=== PATIENT | female | born 1980 | race Caucasian/White ===

== ENCOUNTER 2016-08-06 11:09 | Emergency (ER) | payer MEDICAID ==
--- NOTE | 2016-08-06 11:21 | ER Document Report ---
ED Medical Screen (RME) - General Chief Complaint: Dizziness Stated Complaint: URINARY ISSUES Time Seen by Provider: 08/06/16 11:19 Mode of Arrival: Ambulatory Information source: Patient Notes: This is a 36-year-old female with no significant medical problems who presents to the emergency room with several complaints. She states she has not been feeling well for the past 2-3 weeks. She states she has been experiencing vertigo for 2-1/2 weeks. She started experiencing ringing in her ears approximately 1 week ago and it has been constant. She states last night she started having lower suprapubic pain, burning on urination and back pain. Denies fever, chills, nausea or vomiting. Medicines are control pills. She is not followed by primary care doctor because she does not have insurance. TRAVEL OUTSIDE OF THE [place] IN LAST 30 DAYS: No - Related Data Allergies/Adverse Reactions: moxifloxacin HCl [From Avelox] Allergy (Verified 08/06/16 11:13) blisters in nose Past Medical History Renal/ Medical History: Denies: Hx Peritoneal Dialysis Past Surgical History: Reports: Hx Cholecystectomy - Immunizations Hx Diphtheria, Pertussis, Tetanus Vaccination: No Physical Exam - Vital signs Vitals: Temp Pulse Resp BP Pulse Ox 98.5 F 112 H 22 H 145/99 H 98 08/06/16 11:13 08/06/16 11:13 08/06/16 11:13 08/06/16 11:13 08/06/16 11:13 Course - Vital Signs Vital signs: Temp Pulse Resp BP Pulse Ox 98.5 F 112 H 22 H 145/99 H 98 08/06/16 11:13 08/06/16 11:13 08/06/16 11:13 08/06/16 11:13 08/06/16 11:13
[2016-08-06 11:51] LABS: ABSOLUTE BASOPHILS # (AUTO) 0.1 10^3/uL (0.0-0.2); ABSOLUTE EOSINOPHILS # (AUTO) 0.2 10^3/uL (0.0-0.6); ABSOLUTE LYMPHOCYTES (AUTO) 3.3 10^3/uL (0.5-4.7); ABSOLUTE MONOCYTES (AUTO) 0.6 10^3/uL (0.1-1.4); ABSOLUTE NEUT (AUTO) 7.8 10^3/uL (1.7-8.2); BASOPHILS % (AUTO) 0.8 % (0-2); EOSINOPHILS % (AUTO) 1.7 % (0-6); HEMATOCRIT 41.5 % (36.0-47.0); HEMOGLOBIN 13.7 g/dL (12.0-15.5); HGB HCT DIFFERENCE -0.4; LYMPHOCYTES % (AUTO) 27.6 % (13-45); MEAN CORPUSCULAR HEMOGLOBIN 31.1 pg (27.0-33.4); MEAN CORPUSCULAR VOLUME 94 fl (80-97); RED BLOOD COUNT 4.41 10^6/uL (3.72-5.28); RED CELL DISTRIBUTION WIDTH 13.5 % (11.5-14.0); SEGMENTED NEUTROPHILS % (AUTO) 64.9 % (42-78)
[2016-08-06 11:54] LABS: APPEARANCE,URINE CLEAR; BILIRUBIN,URINE NEGATIVE (NEGATIVE); GLUCOSE, URINE NEGATIVE (NEGATIVE); KETONES,URINE NEGATIVE (NEGATIVE); LEUKOCYTE ESTERASE,URINE NEGATIVE (NEGATIVE); NITRITE,URINE NEGATIVE (NEGATIVE); PROTEIN,URINE NEGATIVE (NEGATIVE); URINE SPECIFIC GRAVITY 1.013; UROBILINOGEN,URINE NEGATIVE mg/dL (<2.0)
[2016-08-06 12:11] LABS: ALANINE AMINOTRANSFERASE 32 U/L (9-52); ALBUMIN 4.4 g/dL (3.5-5.0); ALKALINE PHOSPHATASE 64 U/L (38-126); ANION GAP 14 (5-19); ASPARTATE AMINO TRANSFERASE 24 U/L (14-36); BILIRUBIN,DIRECT 0.4 mg/dL (0.0-0.4); BILIRUBIN,TOTAL 0.4 mg/dL (0.2-1.3); BLOOD UREA NITROGEN 12 mg/dL (7-20); CALCIUM 9.7 mg/dL (8.4-10.2); CARBON DIOXIDE 22 mmol/L (22-30); CHLORIDE 105 mmol/L (98-107); CREATININE RESULT 0.86 mg/dL (0.52-1.25); GLUCOSE 138 mg/dL (75-110); POTASSIUM 4.5 mmol/L (3.6-5.0); SODIUM 140.7 mmol/L (137-145); TOTAL PROTEIN 7.8 g/dL (6.3-8.2)
[2016-08-06] MEDS ORDERED: HYDROCHLOROTHIAZIDE 12.5 MG CAPSULE PO ONE (12:12)
[2016-08-06] MEDS ORDERED: MECLIZINE HCL 25 MG TABLET PO ONE (12:12)
[2016-08-06] MEDS ORDERED: CEPHALEXIN 500 MG CAPSULE PO ONE (12:57)
--- NOTE | 2016-08-06 13:05 | ER Document Report ---
ED General - General Chief Complaint: Dizziness Stated Complaint: URINARY ISSUES Time Seen by Provider: 08/06/16 11:19 Mode of Arrival: Ambulatory Information source: Patient Notes: Pt is a 36-year-old female who presents to the ER for multiple complaints today including dizziness, like the room is spinning. Patient states that she has had vertigo before and it is exactly like that. She complains of this for the past 2 weeks. She also states that she has ringing in the right ear and a feeling of fullness in that ear. She is taking meclizine [id number] as needed, once at night for the past 2 nights but it has not helped yet. She also complains of some lower abdominal and left flank pain since this morning. Patient states that it feels like her previous kidney infection. She admits to some dysuria but denies hematuria, abnormal vaginal discharge, fevers , chills, history of kidney stones. She states the pain is an aching pain. TRAVEL OUTSIDE OF THE [place] IN LAST 30 DAYS: No - Related Data Allergies/Adverse Reactions: moxifloxacin HCl [From Avelox] Allergy (Verified 08/06/16 11:13) blisters in nose Past Medical History - General Information source: Patient - Social History Smoking Status: Never Smoker Chew tobacco use (# tins/day): No Frequency of alcohol use: None Drug Abuse: None Family History: Reviewed & Not Pertinent Patient has suicidal ideation: No Patient has homicidal ideation: No Renal/ Medical History: Denies: Hx Peritoneal Dialysis Past Surgical History: Reports: Hx Cholecystectomy - Immunizations Hx Diphtheria, Pertussis, Tetanus Vaccination: No Review of Systems - Review of Systems Constitutional: No symptoms reported EENT: See HPI Cardiovascular: No symptoms reported Respiratory: No symptoms reported Gastrointestinal: No symptoms reported Genitourinary: See HPI Female Genitourinary: No symptoms reported Musculoskeletal: No symptoms reported Skin: No symptoms reported Hematologic/Lymphatic: No symptoms reported Neurological/Psychological: See HPI Physical Exam - Vital signs Vitals: Temp Pulse Resp BP Pulse Ox 98.5 F 112 H 22 H 145/99 H 98 08/06/16 11:13 08/06/16 11:13 08/06/16 11:13 08/06/16 11:13 08/06/16 11:13 - Notes Notes: PHYSICAL EXAMINATION: GENERAL: uncomfortable appearing, but in no acute distress. HEAD: Atraumatic, normocephalic. EYES: mild nystagmus to the right, Pupils equal round and reactive to light, extraocular movements intact, sclera anicteric, conjunctiva are normal. ENT: ear canals without erythema or foreign body, TMs pearly patino with good bony landmarks, nares patent, oropharynx clear without exudates. Moist mucous membranes. NECK: Normal range of motion, supple without lymphadenopathy LUNGS: CTAB and equal. No wheezes rales or rhonchi. HEART: Regular rate and rhythm without murmurs ABDOMEN: Soft, mild suprapubic tenderness. No guarding, no rebound BACK: no vertebral tenderness, normal ROM GI/: left CVA tenderness EXTREMITIES: Normal range of motion, no pitting edema. No cyanosis. NEUROLOGICAL: Cranial nerves grossly intact. Normal sensory/motor exams. PSYCH: Normal mood, normal affect. SKIN: Warm, Dry, normal turgor, no rashes or lesions noted Course - Re-evaluation Re-evalutation: 08/06/16 13:01 WBC is 12, other labwork unremarkable today, I will treat pt symptomatically for uti. she declines pelvic exam today stating "I know it's not any of that." will also treat her for meniere's disease with ringing in ear along with vertigo symptoms and hearing loss, I advised her to follow up with pcp for further evaluation. - Vital Signs Vital signs: Temp Pulse Resp BP Pulse Ox 98.5 F 112 H 22 H 145/99 H 98 08/06/16 11:13 08/06/16 11:13 08/06/16 11:13 08/06/16 11:13 08/06/16 11:13 - Laboratory Result Diagrams: 08/06/16 11:40 08/06/16 11:40 Laboratory results interpreted by me: 08/06/16 08/06/16 08/06/16 11:40 11:40 11:40 WBC 12.0 H Glucose 138 H TSH 4.71 H Discharge - Discharge Clinical Impression: Meniere disease Qualifiers: Laterality: right Qualified Code(s): H81.01 - Meniere's disease, right ear UTI (urinary tract infection) Qualifiers: Urinary tract infection type: site unspecified Hematuria presence: without hematuria Qualified Code(s): N39.0 - Urinary tract infection, site not specified Condition: Stable Disposition: HOME, SELF-CARE Additional Instructions: Return immediately for any new or worsening symptoms. Follow up with primary care provider, call tomorrow to make followup appointment. Prescriptions: Cephalexin [Cephalexin 500 MG Capsule] 1 cap PO QID #28 capsule Hydrochlorothiazide 12.5 mg PO BID #14 tablet Meclizine HCl 25 mg PO TID #21 tablet
[2016-08-06 13:17] VITALS: BP 132/88
== END 2016-08-06 13:17 | disposition home or self-care (01) ==
LOC: ER 11:09
DX: H81.01 Meniere's disease, right ear (principal); N39.0 Urinary tract infection, site not specified; Z88.1 Allergy status to other antibiotic agents
CPT/HCPCS: 36415; 80053; 81001; 84443; 85025; 87086; 99283

== ENCOUNTER 2016-10-29 18:04 | Emergency (ER) | payer SELFPAY ==
[2016-10-29 20:12] VITALS: BP 131/88
[2016-10-29] MEDS ORDERED: GUAIFENESIN 600 MG TABLET.SA PO ONE (20:12)
--- NOTE | 2016-10-29 20:17 | ER Document Report ---
ED ENT - General Chief Complaint: Congestion Stated Complaint: CONGESTED Time Seen by Provider: 10/29/16 19:23 Mode of Arrival: Ambulatory Information source: Patient Notes: 36-year-old female presents to ED for congestion runny nose and nose pain. She states she has had postnasal drip for a while. TRAVEL OUTSIDE OF THE [place] IN LAST 30 DAYS: No - HPI Patient complains to provider of: Nose problem Onset: Other - Nasal drip has been for week for congestion and nose pain is been today Onset/Duration: Gradual Quality of pain: Achy, Sharp Severity: Moderate Pain Level: 4 Context: Recent Illness Location of pain: Nose Associated symptoms: Runny nose, Sinus pain, Sinus drainage Similar symptoms previously: Yes Recently seen / treated by doctor: No - Related Data Allergies/Adverse Reactions: moxifloxacin HCl [From Avelox] Allergy (Verified 10/29/16 18:14) blisters in nose Past Medical History - General Information source: Patient - Social History Smoking Status: Former Smoker Cigarette use (# per day): No - e-cig Chew tobacco use (# tins/day): No Smoking Education Provided: No Frequency of alcohol use: None Drug Abuse: None Occupation: None Lives with: Family Family History: Arthritis, DM, Hypertension, Malignancy. denies: CAD, COPD, CVA , Hyperlipidemia, Thyroid Disfunction Patient has suicidal ideation: No Patient has homicidal ideation: No - Past Medical History Cardiac Medical History: Reports: Hx Hypertension Pulmonary Medical History: Reports: Hx Bronchitis EENT Medical History: Reports: None Neurological Medical History: Reports: None Endocrine Medical History: Reports: None Renal/ Medical History: Reports: None Malignancy Medical History: Reports: None GI Medical History: Reports: None Musculoskeltal Medical History: Reports None Skin Medical History: Reports Hx Eczema Psychiatric Medical History: Reports: Hx Anxiety Traumatic Medical History: Reports: None Infectious Medical History: Reports: None Past Surgical History: Reports: Hx Cholecystectomy - Immunizations Hx Diphtheria, Pertussis, Tetanus Vaccination: No Review of Systems - Review of Systems Constitutional: Recent illness EENT: Nose pain, Nose congestion, Nose discharge Cardiovascular: No symptoms reported Respiratory: No symptoms reported Gastrointestinal: No symptoms reported Genitourinary: No symptoms reported Female Genitourinary: No symptoms reported Musculoskeletal: No symptoms reported Skin: No symptoms reported Hematologic/Lymphatic: No symptoms reported Neurological/Psychological: No symptoms reported Physical Exam - Vital signs Vitals: Temp Pulse Resp BP Pulse Ox 98.7 F 110 H 16 147/100 H 98 10/29/16 18:14 10/29/16 18:14 10/29/16 18:14 10/29/16 18:14 10/29/16 18:14 Interpretation: Normal - General General appearance: Appears well, Alert - HEENT Head: Normocephalic, Atraumatic Eyes: Normal Pupils: PERRL Ears: Normal External canal: Normal Tympanic membrane: Normal Sinus: Normal Nasal: Swelling, Clear rhinorrhea Mouth/Lips: Normal Mucous membranes: Normal Pharynx: Post nasal drainage Neck: Normal - Respiratory Respiratory status: No respiratory distress Chest status: Nontender Breath sounds: Normal Chest palpation: Normal - Cardiovascular Rhythm: Regular Heart sounds: Normal auscultation Murmur: No - Abdominal Inspection: Normal Distension: No distension Bowel sounds: Normal Tenderness: Nontender Organomegaly: No organomegaly - Back Back: Normal, Nontender - Extremities General upper extremity: Normal inspection, Nontender, Normal color, Normal ROM , Normal temperature General lower extremity: Normal inspection, Nontender, Normal color, Normal ROM , Normal temperature, Normal weight bearing. No: Maurice's sign - Neurological Neuro grossly intact: Yes Cognition: Normal Orientation: AAOx4 [place] Coma Scale Eye Opening: Spontaneous [place] Coma Scale Verbal: Oriented Solomon Coma Scale Motor: Obeys Commands [place] Coma Scale Total: 15 Speech: Normal Motor strength normal: LUE, RUE, LLE, RLE Sensory: Normal - Psychological Associated symptoms: Normal affect, Normal mood - Skin Skin Temperature: Warm Skin Moisture: Dry Skin Color: Normal Course - Re-evaluation Re-evalutation: 10/29/16 22:39 Respiratory infection. Patient treated with Tylenol and Mucinex in the emergency room and discharged home to follow-up with her primary doctor. - Vital Signs Vital signs: Temp Pulse Resp BP Pulse Ox 98.2 F 93 16 131/88 H 98 10/29/16 20:30 10/29/16 20:05 10/29/16 20:05 10/29/16 20:05 10/29/16 20:05 Discharge - Discharge Clinical Impression: URI (upper respiratory infection) Qualifiers: URI type: unspecified URI Qualified Code(s): J06.9 - Acute upper respiratory infection, unspecified Condition: Stable Disposition: HOME, SELF-CARE Instructions: [facility] Additional Instructions: UPPER RESPIRATORY ILLNESS: You have a viral infection of the respiratory passages -- a "cold." This common infection causes nasal congestion, drainage, and often sore throat and cough. It is highly contagious. The disease usually lasts about 10 to 14 days. There is no "cure" for the viral infection -- it must run its course. If there is a complication, such as bacterial infection in the nose, sinuses, middle ear, or bronchial tubes, antibiotics may be required. The antibiotics won't affect the virus. Drink plenty of fluids. A humidifier may help. An expectorant medication or decongestant may make you more comfortable. Use acetaminophen or ibuprofen for fever or aches. See the doctor if fever persists over two days, if there is any significant worsening of your symptoms, or if you simply fail to improve as expected. COUGH-SUPPRESSANT & EXPECTORANT MEDICATION: You are to use a cough medication as needed for relief of symptoms. This medicine is a combination of an expectorant (to make the mucous thinner and more easily "coughed up") and a cough suppressant (to reduce the frequency of coughing). The cough-suppressant medicine is related to narcotics. You may experience mild nausea and sleepiness. Some patients who are very sensitive to narcotics may have stomach pain from this medicine. Taking the medicine with food reduces these side effects. Do not drive or work with machinery until you know how this medicine affects you. The expectorant should have no side effects. Iodine-containing expectorants (such as organidin) should not be taken by persons with active thyroid disease unless approved by your doctor. Call the doctor if you develop shortness of breath, hives, rash, itching, lightheadedness, or severe nausea and vomiting. USE OF ACETAMINOPHEN (Tylenol): Acetaminophen may be taken for pain relief or fever control. It's much safer than aspirin, offering a wider range of "safe" dosages. It is safe during . Some brand names are Tylenol, Panadol, Datril, Anacin 3, Tempra, and Liquiprin. Acetaminophen can be repeated every four hours. The following are maximum recommended dosages: >89 pounds or adults 650 mg to 900 mg Acetaminophen can be repeated every four hours. Maximum dose not to exceed 4000 mg a day. mature aging FOLLOW-UP CARE: If you have been referred to a physician for follow-up care, call the physician s office for an appointment as you were instructed or within the next two days. If you experience worsening or a significant change in your symptoms, notify the physician immediately or return to the Emergency Department at any time for re-evaluation. Forms: Elevated Blood Pressure
== END 2016-10-29 20:30 | disposition home or self-care (01) ==
LOC: ER 18:04
DX: J06.9 Acute upper respiratory infection, unspecified (principal); R09.81 Nasal congestion; R09.89 Other specified symptoms and signs involving the circulatory and respiratory systems; J34.89 Other specified disorders of nose and nasal sinuses; Z87.891 Personal history of nicotine dependence
CPT/HCPCS: 99283

== ENCOUNTER 2017-03-06 12:50 | Emergency (ER) | payer SELFPAY ==
[2017-03-06] MEDS ORDERED: ONDANSETRON HCL INJ/PF 4 MG/2 ML SDV IV ONE (14:46)
[2017-03-06] MEDS ORDERED: MORPHINE SULFATE 10 MG/ML INJ IV ONE (14:46)
--- NOTE | 2017-03-06 14:47 | ER Document Report ---
ED General - General Chief Complaint: Abdominal Pain Stated Complaint: RIGHT SIDE PAIN Time Seen by Provider: 03/06/17 14:40 Mode of Arrival: Ambulatory Information source: Patient Notes: 37-year-old female presents with umbilical pain radiating to the right lower quadrant. Patient denies any fevers or chills denies any nausea vomiting diarrhea patient denies any previous similar episodes TRAVEL OUTSIDE OF THE [place] IN LAST 30 DAYS: No - HPI Onset: This morning Onset/Duration: Sudden Quality of pain: Achy Severity: Mild Pain Level: 1 Associated symptoms: Other Exacerbated by: Denies Relieved by: Denies Similar symptoms previously: No Recently seen / treated by doctor: No - Related Data Allergies/Adverse Reactions: moxifloxacin HCl [From Avelox] Allergy (Verified 03/06/17 14:34) blisters in nose Past Medical History - Social History Smoking Status: Former Smoker Cigarette use (# per day): No Chew tobacco use (# tins/day): No Smoking Education Provided: No Frequency of alcohol use: None Drug Abuse: None Family History: Arthritis, DM, Hypertension, Malignancy. denies: CAD, COPD, CVA , Hyperlipidemia, Thyroid Disfunction Patient has suicidal ideation: No Patient has homicidal ideation: No - Past Medical History Cardiac Medical History: Reports: Hx Hypertension Pulmonary Medical History: Reports: Hx Bronchitis Renal/ Medical History: Denies: Hx Peritoneal Dialysis Skin Medical History: Reports Hx Eczema Psychiatric Medical History: Reports: Hx Anxiety Past Surgical History: Reports: Hx Cholecystectomy - Immunizations Hx Diphtheria, Pertussis, Tetanus Vaccination: No Review of Systems - Review of Systems Notes: REVIEW OF SYSTEMS: CONSTITUTIONAL : Denies fever, chills, or sweats. Denies recent illness. EENT: Denies eye, ear, throat, or mouth pain or symptoms. Denies nasal or sinus congestion or discharge. Denies throat, tongue, or mouth swelling or difficulty swallowing. CARDIOVASCULAR: Denies chest pain. Denies palpitations or racing or irregular heart beat. Denies ankle edema. RESPIRATORY: Denies cough, cold, or chest congestion. Denies shortness of breath, difficulty breathing, or wheezing. GASTROINTESTINAL: Admits to abdominal pain GENITOURINARY: Denies difficulty urinating, painful urination, burning, frequency, blood in urine, or discharge. FEMALE GENITOURINARY: Denies vaginal bleeding, heavy or abnormal periods, irregular periods. Denies vaginal discharge or odor. MUSCULOSKELETAL: Denies back or neck pain or stiffness. Denies joint pain or swelling. SKIN: Denies rash, lesions or sores. HEMATOLOGIC : Denies easy bruising or bleeding. LYMPHATIC: Denies swollen, enlarged glands. NEUROLOGICAL: Denies confusion or altered mental status. Denies passing out or loss of consciousness. Denies dizziness or lightheadedness. Denies headache. Denies weakness or paralysis or loss of use of either side. Denies problems with gait or speech. Denies sensory loss, numbness, or tingling. Denies seizures. PSYCHIATRIC: Denies anxiety or stress. Denies depression, suicidal ideation, or homicidal ideation. ALL OTHER SYSTEMS REVIEWED AND NEGATIVE. PHYSICAL EXAMINATION: GENERAL: Well-appearing, well-nourished and in no acute distress. HEAD: Atraumatic, normocephalic. EYES: Pupils equal round and reactive to light, extraocular movements intact, conjunctiva are normal. ENT: Nares patent, oropharynx clear without exudates. Moist mucous membranes. NECK: Normal range of motion, supple without lymphadenopathy LUNGS: Breath sounds clear to auscultation bilaterally and equal. No wheezes rales or rhonchi. HEART: Regular rate and rhythm without murmurs ABDOMEN: Soft, tender to the right of the umbilicus there is no right lower quadrant tenderness no rebound no guarding no masses Female : deferred Musculoskeletal: Normal range of motion, no pitting or edema. No cyanosis. NEUROLOGICAL: Cranial nerves grossly intact. Normal speech, normal gait. Normal sensory, motor exams PSYCH: Normal mood, normal affect. SKIN: Warm, Dry, normal turgor, no rashes or lesions noted. Dictation was performed using [employer] voice recognition software Physical Exam - Vital signs Vitals: Temp Pulse Resp BP Pulse Ox 98.2 F 111 H 18 112/85 98 03/06/17 17:42 03/06/17 17:42 03/06/17 17:42 03/06/17 17:42 03/06/17 17:42 Course - Re-evaluation Re-evalutation: 03/06/17 21:04 Patient's presentation is a possibility of an acute appendicitis, the lab work did note mild white count elevation but she is afebrile. I did perform a CT with oral and IV contrast no acute abnormalities were noted. I explained to the patient that there is a higher probability of appendicitis given her presentation and that this may be too early. Therefore patient was explained that her symptoms may worsen and if they do she must return immediately for reevaluation. Patient states she understands and will do so. I had a long discussion with both her and her father regarding my concerns. They are happy with this plan and will be discharged home with extremely close follow-up I provided my phone number for them to contact if there are any other concerns After performing a Medical Screening Examination, I estimate there is LOW risk for ACUTE APPENDICITIS, BOWEL OBSTRUCTION, ACUTE CHOLECYSTITIS, PERFORATED DIVERTICULITIS, INCARCERATED HERNIA, PANCREATITIS, PELVIC INFLAMMATORY DISEASE, PERFORATED ULCER, ECTOPIC , or TUBO-OVARIAN ABSCESS, thus I consider the discharge disposition reasonable. Also, there is no evidence or peritonitis , sepsis, or toxicity. I have reevaluated this patient multiple times and no significant life threatening changes are noted. The patient and I have discussed the diagnosis and risks, and we agree with discharging home with close follow-up with the understanding that symptoms and presentations can change. We also discussed returning to the Emergency Department immediately if new or worsening symptoms occur. We have discussed the symptoms which are most concerning (e.g., bloody stool, fever, changing or worsening pain, vomiting) that necessitate immediate return. - Vital Signs Vital signs: Temp Pulse Resp BP Pulse Ox 98.2 F 111 H 18 112/85 98 03/06/17 17:42 03/06/17 17:42 03/06/17 17:42 03/06/17 17:42 03/06/17 17:42 - Laboratory Result Diagrams: 03/06/17 15:27 03/06/17 15:27 Laboratory results interpreted by me: 03/06/17 03/06/17 15:27 15:27 WBC 13.5 H Plt Count 475 H Absolute Neutrophils 9.9 H Glucose 193 H - Diagnostic Test Radiology reviewed: Image reviewed, Reports reviewed - no acute abnormaltiy Discharge - Discharge Clinical Impression: Abdominal pain Qualifiers: Abdominal location: periumbilical Qualified Code(s): R10.33 - Periumbilical pain Condition: Stable Disposition: HOME, SELF-CARE Instructions: Abdominal Pain ([facility]), Observation for Appendicitis ([facility]) Additional Instructions: Return immediately if there are any other concerns
[2017-03-06 15:48] LABS: ABSOLUTE BASOPHILS # (AUTO) 0.1 10^3/uL (0.0-0.2); ABSOLUTE EOSINOPHILS # (AUTO) 0.1 10^3/uL (0.0-0.6); ABSOLUTE LYMPHOCYTES (AUTO) 2.9 10^3/uL (0.5-4.7); ABSOLUTE MONOCYTES (AUTO) 0.4 10^3/uL (0.1-1.4); ABSOLUTE NEUT (AUTO) 9.9 10^3/uL (1.7-8.2); BASOPHILS % (AUTO) 0.6 % (0-2); EOSINOPHILS % (AUTO) 0.8 % (0-6); HEMOGLOBIN 14.5 g/dL (12.0-15.5); LYMPHOCYTES % (AUTO) 21.9 % (13-45); MEAN CORPUSCULAR HEMOGLOBIN 30.9 pg (27.0-33.4); MEAN CORPUSCULAR VOLUME 94 fl (80-97); PLATELET COUNT 475 10^3/uL (150-450); RED CELL DISTRIBUTION WIDTH 13.3 % (11.5-14.0); SEGMENTED NEUTROPHILS % (AUTO) 73.7 % (42-78); TOTAL CELLS COUNTED % (AUTO) 100 %; WHITE BLOOD COUNT 13.5 10^3/uL (4.0-10.5)
[2017-03-06 16:07] LABS: ALANINE AMINOTRANSFERASE 43 U/L (9-52); ALBUMIN 4.6 g/dL (3.5-5.0); ALKALINE PHOSPHATASE 68 U/L (38-126); ANION GAP 13 (5-19); ASPARTATE AMINO TRANSFERASE 25 U/L (14-36); BILIRUBIN,DIRECT 0.2 mg/dL (0.0-0.4); BILIRUBIN,TOTAL 0.5 mg/dL (0.2-1.3); BLOOD UREA NITROGEN 15 mg/dL (7-20); CALCIUM 10.1 mg/dL (8.4-10.2); CARBON DIOXIDE 22 mmol/L (22-30); CHLORIDE 104 mmol/L (98-107); GLUCOSE 193 mg/dL (75-110); LIPASE 106.1 U/L (23-300); POTASSIUM 4.6 mmol/L (3.6-5.0); TOTAL PROTEIN 7.7 g/dL (6.3-8.2)
--- NOTE | 2017-03-06 17:29 | RADIOLOGY REPORT (SQ) ---
EXAM DESCRIPTION: CT ABD/PELVIS WITH IV ORAL COMPLETED DATE/TIME: 03/06/2017 5:19 pm REASON FOR STUDY: RLQ pain COMPARISON: None. TECHNIQUE: CT scan of the abdomen and pelvis performed using helical scanning technique with dynamic intravenous contrast injection. No oral contrast. Images reviewed with lung, soft tissue, and bone windows. Reconstructed coronal and sagittal MPR images reviewed. Delayed images for evaluation of the urinary system also acquired. All images stored on PACS. All CT scanners at this facility use dose modulation, iterative reconstruction, and/or weight based d osing when appropriate to reduce radiation dose to as low as reasonably achievable (ALARA). [facility]: Dose Right [facility]: CareDose [facility]: Dose Right [facility]: Teradose 4D [facility]: [id number] CONTRAST TYPE AND DOSE: contrast/concentration: Isovue 370.00 mg/ml; Total Contrast Delivered: 86.0 ml; Total Saline Delivered: 45.0 ml RENAL FUNCTION: None required. The patient is less than 50 years old. RADIATION DOSE: CT Rad equipment meets quality standard of care and radiation dose reduction techniq ues were employed. CTDIvol: 19.8 - 21.0 mGy. DLP: 2175 mGy-cm.. LIMITATIONS: None. FINDINGS: LOWER CHEST: No significant findings. No nodules or infiltrates. LIVER: Diffuse hepatic steatosis. No masses. No dilated ducts. SPLEEN: Normal size. No focal lesions. PANCREAS: No masses. No significant calcifications. No adjacent inflammation or peripancreatic fluid collections. Pancreatic duct not dilated. GALLBLADDER: Surgically absent. 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 Left adrenal gland is normal. RIGHT KIDNEY AND URETER: No solid masses. No significant calcifications. No hydronephrosis or hyd roureter. LEFT KIDNEY AND URETER: No solid masses. No significant calcifications. No hydronephrosis or hydr oureter. AORTA AND VESSELS: No aneurysm. No dissection. Renal arteries, SMA, celiac without stenosis. RETROPERITONEUM: No retroperitoneal adenopathy, hemorrhage or masses. BOWEL AND PERITONEAL CAVITY: No masses or inflammatory changes. No free fluid or peritoneal masses. APPENDIX: Normal. PELVIS: No mass. No free fluid. Normal bladder. ABDOMINAL WALL: No masses. Tiny fat containing periumbilical hernia. BONES: No significant or acute findings. OTHER: No other significant finding. IMPRESSION: NO ACUTE FINDING IN THE ABDOMEN OR PELVIS ON CT SCAN WITH IV CONTRAST. INCIDENTAL FINDINGS ABOVE. TECHNICAL DOCUMENTATION: JOB ID: [id number] Quality ID # [id number]: Final reports with documentation of one or more dose reduction techniques (e.g., Au tomated exposure control, adjustment of the mA and/or kV according to patient size, use of iterative reconstruction technique) 2010 [employer]- All Rights Reserved
[2017-03-06 17:53] VITALS: BP 112/85
== END 2017-03-06 17:42 | disposition home or self-care (01) ==
LOC: ER 12:50
DX: R10.33 Periumbilical pain (principal); I10 Essential (primary) hypertension; Z90.49 Acquired absence of other specified parts of digestive tract; Z87.891 Personal history of nicotine dependence
CPT/HCPCS: 99284; 96374; 96375; 36415; 83690; 85025; 80053; 74177; J2270; J2405

== ENCOUNTER 2017-10-06 16:04 | Emergency (ER) | payer MEDICAID ==
[2017-10-06] MEDS ORDERED: ACETAMINOPHEN 325 MG TABLET PO ONE (16:44)
--- NOTE | 2017-10-06 16:46 | ER Document Report ---
ED Medical Screen (RME) - General Chief Complaint: Abdominal Pain Stated Complaint: LIGHTHEADED,DIZZY Time Seen by Provider: 10/06/17 16:44 TRAVEL OUTSIDE OF THE [place] IN LAST 30 DAYS: No - HPI Notes: 10/06/17 16:46 Fever and abdominal pain. - Related Data Allergies/Adverse Reactions: moxifloxacin HCl [From Avelox] Allergy (Verified 03/06/17 14:34) blisters in nose Past Medical History - Social History Chew tobacco use (# tins/day): No Frequency of alcohol use: None Drug Abuse: None - Past Medical History Cardiac Medical History: Reports: Hx Hypertension Pulmonary Medical History: Reports: Hx Bronchitis Renal/ Medical History: Denies: Hx Peritoneal Dialysis Skin Medical History: Reports Hx Eczema Psychiatric Medical History: Reports: Hx Anxiety Past Surgical History: Reports: Hx Cholecystectomy - Immunizations Hx Diphtheria, Pertussis, Tetanus Vaccination: No Review of Systems - Review of Systems Constitutional: Fever Gastrointestinal: Abdominal pain Physical Exam - Vital signs Vitals: Temp Pulse Resp BP Pulse Ox 102.9 F H 147 H 18 151/100 H 98 10/06/17 16:09 10/06/17 16:09 10/06/17 16:09 10/06/17 16:09 10/06/17 16:09 - General General appearance: Other - Uncomfortable - Respiratory Respiratory status: No respiratory distress Chest status: Nontender Breath sounds: Normal Chest palpation: Normal Course - Vital Signs Vital signs: Temp Pulse Resp BP Pulse Ox 102.9 F H 147 H 18 151/100 H 98 10/06/17 16:09 10/06/17 16:09 10/06/17 16:09 10/06/17 16:09 10/06/17 16:09 Doctor's Discharge - Discharge Referrals: JOSÉ MIGUEL GUZMÁN MD [Primary Care Provider] - Follow up as needed
[2017-10-06] MEDS: NORMAL SALINE 1000 ML 1,000 ML IV PRN ×2 (17:01→18:42)
[2017-10-06 17:31] LABS: ABSOLUTE LYMPHOCYTES (AUTO) 1.1 10^3/uL (0.5-4.7); ABSOLUTE MONOCYTES (AUTO) 0.5 10^3/uL (0.1-1.4); ABSOLUTE NEUT (AUTO) 12.3 10^3/uL (1.7-8.2); BASOPHILS % (AUTO) 0.2 % (0-2); EOSINOPHILS % (AUTO) 0.3 % (0-6); HEMATOCRIT 42.2 % (36.0-47.0); HEMOGLOBIN 14.1 g/dL (12.0-15.5); LYMPHOCYTES % (AUTO) 7.8 % (13-45); MEAN CORPUSCULAR HEMOGLOBIN 31.3 pg (27.0-33.4); MEAN CORPUSCULAR HGB CONC 33.5 g/dL (32.0-36.0); MEAN CORPUSCULAR VOLUME 93 fl (80-97); MONOCYTES % (AUTO) 3.3 % (3-13); PLATELET COUNT 388 10^3/uL (150-450); RED BLOOD COUNT 4.53 10^6/uL (3.72-5.28); RED CELL DISTRIBUTION WIDTH 13.3 % (11.5-14.0); SEGMENTED NEUTROPHILS % (AUTO) 88.4 % (42-78); TOTAL CELLS COUNTED % (AUTO) 100 %; WHITE BLOOD COUNT 13.9 10^3/uL (4.0-10.5)
[2017-10-06 17:38] LABS: INTERNATIONAL RATION (INR) 0.96; PROTHROMBIN TIME 13.3 SEC (11.4-15.4); VENOUS BLOOD BASE EXCESS -2.5 mmol/L; VENOUS BLOOD HCO3 21.4 mmol/L (20-32); VENOUS BLOOD PCO2 35.2 mmHg (35-63); VENOUS BLOOD PH 7.4 (7.30-7.42)
[2017-10-06 17:39] LABS: APPEARANCE,URINE SLIGHTLY-CLOUDY; BILIRUBIN,URINE NEGATIVE (NEGATIVE); CALCIUM OXALATE CRYSTALS,URINE MANY /HPF; COLOR,URINE YELLOW; GLUCOSE, URINE NEGATIVE (NEGATIVE); KETONES,URINE NEGATIVE (NEGATIVE); LEUKOCYTE ESTERASE,URINE TRACE (NEGATIVE); NITRITE,URINE NEGATIVE (NEGATIVE); PROTEIN,URINE >=500 mg/dL (NEGATIVE); URINE SPECIFIC GRAVITY 1.022; UROBILINOGEN,URINE NEGATIVE mg/dL (<2.0)
[2017-10-06 17:59] LABS: ALANINE AMINOTRANSFERASE 37 U/L (9-52); ALBUMIN 4.8 g/dL (3.5-5.0); ALKALINE PHOSPHATASE 71 U/L (38-126); ANION GAP 17 (5-19); ASPARTATE AMINO TRANSFERASE 26 U/L (14-36); BILIRUBIN,DIRECT 0.3 mg/dL (0.0-0.4); BILIRUBIN,TOTAL 0.4 mg/dL (0.2-1.3); BLOOD UREA NITROGEN 9 mg/dL (7-20); CALCIUM 9.9 mg/dL (8.4-10.2); CARBON DIOXIDE 20 mmol/L (22-30); CHLORIDE 104 mmol/L (98-107); GLUCOSE 141 mg/dL (75-110); POTASSIUM 4.6 mmol/L (3.6-5.0); SODIUM 140.8 mmol/L (137-145); TOTAL PROTEIN 8.3 g/dL (6.3-8.2)
--- NOTE | 2017-10-06 18:25 | RADIOLOGY REPORT (SQ) ---
EXAM DESCRIPTION: CHEST 2 VIEWS COMPLETED DATE/TIME: 10/06/2017 6:14 pm REASON FOR STUDY: fever COMPARISON: None. EXAM PARAMETERS: NUMBER OF VIEWS: two views TECHNIQUE: Digital Frontal and Lateral radiographic views of the chest acquired. RADIATION DOSE: NA LIMITATIONS: none FINDINGS: LUNGS AND PLEURA: No opacities, masses or pneumothorax. No pleural effusion. MEDIASTINUM AND HILAR STRUCTURES: No masses or contour abnormalities. HEART AND VASCULAR STRUCTURES: Heart normal size. No evidence for failure. BONES: No acute findings. HARDWARE: None in the chest. OTHER: No other significant finding. IMPRESSION: NO ACUTE RADIOGRAPHIC FINDING IN THE CHEST. TECHNICAL DOCUMENTATION: JOB ID: [id number] [employer]- All Rights Reserved Reading location - IP/workstation name: [email or web address]
[2017-10-06] MEDS ORDERED: HYDROMORPHONE HCL INJ/PF 2 MG/ML AMPULE IV ONE (18:27)
[2017-10-06] MEDS ORDERED: ONDANSETRON HCL INJ/PF 4 MG/2 ML SDV IV ONE (18:27)
--- NOTE | 2017-10-06 18:48 | RADIOLOGY REPORT (SQ) ---
EXAM DESCRIPTION: CT ABD/PELVIS WITH IV ONLY COMPLETED DATE/TIME: 10/06/2017 6:33 pm REASON FOR STUDY: fever lower abd pain COMPARISON: 03/06/2017 TECHNIQUE: CT scan of the abdomen and pelvis performed using helical scanning technique with dynamic intravenous contrast injection. No oral contrast. Images reviewed with lung, soft tissue, and bone windows. Reconstructed coronal and sagittal MPR images reviewed. Delayed images for evaluation of the urinary system also acquired. All images stored on PACS. All CT scanners at this facility use dose modulation, iterative reconstruction, and/or weight based d osing when appropriate to reduce radiation dose to as low as reasonably achievable (ALARA). [facility]: Dose Right [facility]: CareDose [facility]: Dose Right [facility]: Teradose 4D [facility]: [email or web address] CONTRAST TYPE AND DOSE: contrast/concentration: Isovue 350.00 mg/ml; Total Contrast Delivered: 97.0 ml; Total Saline Delivered: 50.0 ml RENAL FUNCTION: None required. The patient is less than 50 years old. RADIATION DOSE: CT Rad equipment meets quality standard of care and radiation dose reduction techniq ues were employed. CTDIvol: 18.3 - 20.3 mGy. DLP: 2071 mGy-cm.. LIMITATIONS: None. FINDINGS: LOWER CHEST: No significant findings. No nodules or infiltrates. LIVER: Diffuse hypoattenuation of the liver. SPLEEN: Normal size. No focal lesions. PANCREAS: No masses. No significant calcifications. No adjacent inflammation or peripancreatic fluid collections. Pancreatic duct not dilated. GALLBLADDER: Surgically absent. ADRENAL GLANDS: No significant masses or asymmetry. RIGHT KIDNEY AND URETER: No solid masses. No significant calcifications. No hydronephrosis or hyd roureter. LEFT KIDNEY AND URETER: No solid masses. No significant calcifications. No hydronephrosis or hydr oureter. AORTA AND VESSELS: No aneurysm. No dissection. Renal arteries, SMA, celiac without stenosis. RETROPERITONEUM: No retroperitoneal adenopathy, hemorrhage or masses. BOWEL AND PERITONEAL CAVITY: No masses or inflammatory changes. No free fluid or peritoneal masses. APPENDIX: Normal. PELVIS: No mass. No free fluid. Normal bladder. ABDOMINAL WALL: No masses. No hernias. BONES: No significant or acute findings. OTHER: No other significant finding. IMPRESSION: Fatty infiltration of the liver. No acute abdominal or pelvic imaging findings. TECHNICAL DOCUMENTATION: JOB ID: [id number] Quality ID # [id number]: Final reports with documentation of one or more dose reduction techniques (e.g., Au tomated exposure control, adjustment of the mA and/or kV according to patient size, use of iterative reconstruction technique) 2010 [employer]- All Rights Reserved Reading location - IP/workstation name: [email or web address]
[2017-10-06] MEDS ORDERED: KETOROLAC TROMETHAMINE INJ/PF 30 MG/1 ML SDV IV ONE (19:37)
[2017-10-06] MEDS ORDERED: CEPHALEXIN 500 MG CAPSULE PO ONE (19:37)
--- NOTE | 2017-10-06 19:41 | ER Document Report ---
ED General - General Chief Complaint: Abdominal Pain Stated Complaint: LIGHTHEADED,DIZZY Time Seen by Provider: 10/06/17 16:44 Mode of Arrival: Ambulatory Information source: Patient, [facility] Records Notes: 37-year-old female with hypertension, anxiety, known left bundle branch block presents with complaint of abdominal cramping, low back pain and diarrhea. Patient states that low back pain started yesterday. She describes it as a dull ache that is intermittent. She states that her abdominal cramping also started yesterday. It is diffusely located, intermittent. She did start her period yesterday. Patient has had associated, diarrhea, greater than 10 episodes that she states have been nonbloody or black. She has had nausea without vomiting. Patient did take Tylenol prior to arrival without relief. TRAVEL OUTSIDE OF THE [place] IN LAST 30 DAYS: No - HPI Onset: Yesterday Onset/Duration: Gradual, Persistent Quality of pain: Achy, Cramping Severity: Moderate Associated symptoms: Diarrhea, Fever, Nausea. denies: Chest pain, Shortness of breath Exacerbated by: Denies Relieved by: Denies Similar symptoms previously: No Recently seen / treated by doctor: No - Related Data Allergies/Adverse Reactions: moxifloxacin HCl [From Avelox] Allergy (Verified 03/06/17 14:34) blisters in nose Past Medical History - General Information source: Patient, [facility] Records - Social History Smoking Status: Former Smoker Chew tobacco use (# tins/day): No Frequency of alcohol use: None Drug Abuse: None Lives with: Spouse/Significant other Family History: Arthritis, DM, Hypertension, Malignancy. denies: CAD, COPD, CVA , Hyperlipidemia, Thyroid Disfunction Patient has suicidal ideation: No Patient has homicidal ideation: No - Past Medical History Cardiac Medical History: Reports: Hx Hypertension, Other - Left bundle branch block Pulmonary Medical History: Reports: Hx Bronchitis Renal/ Medical History: Denies: Hx Peritoneal Dialysis Skin Medical History: Reports Hx Eczema Psychiatric Medical History: Reports: Hx Anxiety Past Surgical History: Reports: Hx Cholecystectomy - Immunizations Hx Diphtheria, Pertussis, Tetanus Vaccination: No Review of Systems - Review of Systems Notes: REVIEW OF SYSTEMS: CONSTITUTIONAL : Denies recent illness. Denies weight loss, recent hospitalizations. EENT: Denies visual changes, eye pain. Denies nasal or sinus congestion or discharge. Denies sore throat, oral lesions, difficulty swallowing. CARDIOVASCULAR: Denies chest pain. Denies palpitations. Denies lower extremity edema. RESPIRATORY: Denies cough, cold, or chest congestion. Denies shortness of breath, wheezing. GASTROINTESTINAL: Denies abdominal distention. Denies vomiting. Denies blood in vomitus, stools, or per rectum. Denies black, tarry stools. Denies constipation. GENITOURINARY: Denies difficulty urinating, painful urination, frequency, blood in urine, or vaginal discharge. MUSCULOSKELETAL: Denies back or neck pain or stiffness. Denies joint pain or swelling. SKIN: Denies rash, lesions or sores. HEMATOLOGIC : Denies easy bruising or bleeding. LYMPHATIC: Denies swollen glands. NEUROLOGICAL: Denies confusion or altered mental status. Denies passing out or loss of consciousness. Denies dizziness or lightheadedness. Denies headache. Denies weakness or paralysis. Denies problems difficulty with ambulation, slurred speech. Denies sensory loss, numbness, or tingling. Denies seizures. PSYCHIATRIC: Denies anxiety or stress. Denies depression, suicidal ideation, or homicidal ideation. Denies visual or auditory hallucinations. Physical Exam - Vital signs Vitals: Temp Pulse Resp BP Pulse Ox 102.9 F H 147 H 18 151/100 H 98 10/06/17 16:09 10/06/17 16:09 10/06/17 16:09 10/06/17 16:09 10/06/17 16:09 - Notes Notes: PHYSICAL EXAMINATION: GENERAL: Well-appearing, well-nourished and in no acute distress. HEAD: Atraumatic, normocephalic. EYES: Pupils equal round and reactive to light, extraocular movements intact, conjunctiva are normal. ENT: Nares patent, oropharynx clear without exudates. Moist mucous membranes. NECK: Normal range of motion, supple without lymphadenopathy LUNGS: Breath sounds clear to auscultation bilaterally and equal. No wheezes rales or rhonchi. HEART: Regular rate and rhythm without murmurs ABDOMEN: Soft, nontender, nondistended abdomen. No guarding, no rebound. No masses appreciated. Female : deferred Musculoskeletal: Normal range of motion, no pitting or edema. No cyanosis. NEUROLOGICAL: Cranial nerves grossly intact. Normal speech, normal gait. Normal sensory, motor exams PSYCH: Normal mood, normal affect. SKIN: Warm, Dry, normal turgor, no rashes or lesions noted. Course - Re-evaluation Re-evalutation: 10/07/17 16:06 Microbiology 10/06/17 17:05 Urine Culture - Preliminary Clean Catch Midstream NO GROWTH IN 1 DAY Laboratory 10/06/17 10/06/17 10/06/17 17:05 17:05 17:05 WBC 13.9 H RBC 4.53 Hgb 14.1 Hct 42.2 MCV 93 MCH 31.3 MCHC 33.5 RDW 13.3 Plt Count 388 Seg Neutrophils % 88.4 H Lymphocytes % 7.8 L Monocytes % 3.3 Eosinophils % 0.3 Basophils % 0.2 Absolute Neutrophils 12.3 H Absolute Lymphocytes 1.1 Absolute Monocytes 0.5 Absolute Eosinophils 0.0 Absolute Basophils 0.0 PT 13.3 INR 0.96 VBG pH VBG pCO2 VBG HCO3 VBG Base Excess Sodium 140.8 Potassium 4.6 Chloride 104 Carbon Dioxide 20 L Anion Gap 17 BUN 9 Creatinine 0.77 Est GFR ( Amer) > 60 Est GFR (Non-Af Amer) > 60 Glucose 141 H Lactic Acid Calcium 9.9 Total Bilirubin 0.4 Direct Bilirubin 0.3 Neonat Total Bilirubin Not Reportable Neonat Direct Bilirubin Not Reportable Neonat Indirect Bili Not Reportable AST 26 ALT 37 Alkaline Phosphatase 71 Total Protein 8.3 H Albumin 4.8 Urine Color Urine Appearance Urine pH Ur Specific Noel Urine Protein Urine Glucose (UA) Urine Ketones Urine Blood Urine Nitrite Urine Bilirubin Urine Urobilinogen Ur Leukocyte Esterase Urine WBC (Auto) Urine RBC (Auto) Squamous Epi Cells Auto Calcium Oxalate Cr Auto Urine Mucus (Auto) Urine Ascorbic Acid Urine HCG, Qual 10/06/17 10/06/17 10/06/17 17:05 17:05 17:05 WBC RBC Hgb Hct MCV MCH MCHC RDW Plt Count Seg Neutrophils % Lymphocytes % Monocytes % Eosinophils % Basophils % Absolute Neutrophils Absolute Lymphocytes Absolute Monocytes Absolute Eosinophils Absolute Basophils PT INR VBG pH 7.40 VBG pCO2 35.2 VBG HCO3 21.4 VBG Base Excess -2.5 Sodium Potassium Chloride Carbon Dioxide Anion Gap BUN Creatinine Est GFR ( Amer) Est GFR (Non-Af Amer) Glucose Lactic Acid 1.8 Calcium Total Bilirubin Direct Bilirubin Neonat Total Bilirubin Neonat Direct Bilirubin Neonat Indirect Bili AST ALT Alkaline Phosphatase Total Protein Albumin Urine Color YELLOW Urine Appearance SLIGHTLY-CLOUDY Urine pH 5.0 Ur Specific Noel 1.022 Urine Protein >=500 H Urine Glucose (UA) NEGATIVE Urine Ketones NEGATIVE Urine Blood LARGE H Urine Nitrite NEGATIVE Urine Bilirubin NEGATIVE Urine Urobilinogen NEGATIVE Ur Leukocyte Esterase TRACE H Urine WBC (Auto) 19 Urine RBC (Auto) >182 Squamous Epi Cells Auto 1 Calcium Oxalate Cr Auto MANY Urine Mucus (Auto) OCC Urine Ascorbic Acid NEGATIVE Urine HCG, Qual 10/06/17 17:05 WBC RBC Hgb Hct MCV MCH MCHC RDW Plt Count Seg Neutrophils % Lymphocytes % Monocytes % Eosinophils % Basophils % Absolute Neutrophils Absolute Lymphocytes Absolute Monocytes Absolute Eosinophils Absolute Basophils PT INR VBG pH VBG pCO2 VBG HCO3 VBG Base Excess Sodium Potassium Chloride Carbon Dioxide Anion Gap BUN Creatinine Est GFR ( Amer) Est GFR (Non-Af Amer) Glucose Lactic Acid Calcium Total Bilirubin Direct Bilirubin Neonat Total Bilirubin Neonat Direct Bilirubin Neonat Indirect Bili AST ALT Alkaline Phosphatase Total Protein Albumin Urine Color Urine Appearance Urine pH Ur Specific Noel Urine Protein Urine Glucose (UA) Urine Ketones Urine Blood Urine Nitrite Urine Bilirubin Urine Urobilinogen Ur Leukocyte Esterase Urine WBC (Auto) Urine RBC (Auto) Squamous Epi Cells Auto Calcium Oxalate Cr Auto Urine Mucus (Auto) Urine Ascorbic Acid Urine HCG, Qual NEGATIVE Chest X-Ray 10/06/17 16:44 IMPRESSION: NO ACUTE RADIOGRAPHIC FINDING IN THE CHEST. Abdomen/Pelvis CT 10/06/17 16:45 IMPRESSION: Fatty infiltration of the liver. No acute abdominal or pelvic imaging findings. 37-year-old female presents with complaint of low back pain, abdominal cramping , diarrhea that started yesterday with the onset of her menstrual cycle. Patient has had associated nausea without vomiting. She denies any dysuria or hematuria. She denies sick contacts. Upon arrival patient is febrile, tachycardic. Previous medical records reviewed. Patient does not appear toxic or dehydrated. She is in mild distress. CT of the abdomen and pelvis with contrast was obtained and showed no acute abdominal or pelvic findings. Patient does have a mild leukocytosis. CMP is without electrolyte abnormalities. LFTs within normal limits. Urinalysis consistent with urinary tract infection. HCG is negative. Discussed findings with the patient to does report improvement of her pain and nausea. Prior to discharge patient's fever has resolved and heart rate is greatly improved. She is tolerating fluids. She was discharged home with Zofran, Keflex and Motrin. Patient provided the opportunity to ask questions, and express concerns. Discharge instructions discussed. Patient is agreeable with discharge home. Return indications explained and discussed with the patient who displays understanding. Patient encouraged to return to the emergency department immediately with any concerns. 10/07/17 16:08 - Vital Signs Vital signs: Temp Pulse Resp BP Pulse Ox 98.5 F 102 H 16 120/67 97 10/06/17 21:39 10/06/17 21:39 10/06/17 21:39 10/06/17 21:39 10/06/17 21:39 - Laboratory Result Diagrams: 10/06/17 17:05 10/06/17 17:05 Laboratory results interpreted by me: 10/06/17 10/06/17 10/06/17 17:05 17:05 17:05 WBC 13.9 H Seg Neutrophils % 88.4 H Lymphocytes % 7.8 L Absolute Neutrophils 12.3 H Carbon Dioxide 20 L Glucose 141 H Total Protein 8.3 H Urine Protein >=500 H Urine Blood LARGE H Ur Leukocyte Esterase TRACE H - Diagnostic Test Radiology reviewed: Image reviewed, Reports reviewed Discharge - Discharge Clinical Impression: Abdominal cramping UTI (urinary tract infection) Qualifiers: Urinary tract infection type: site unspecified Hematuria presence: with hematuria Qualified Code(s): N39.0 - Urinary tract infection, site not specified Fever Qualifiers: Fever type: unspecified Qualified Code(s): R50.9 - Fever, unspecified Nausea & vomiting Qualifiers: Vomiting type: unspecified Vomiting Intractability: non-intractable Qualified Code(s): R11.2 - Nausea with vomiting, unspecified Diarrhea Qualifiers: Diarrhea type: unspecified type Qualified Code(s): R19.7 - Diarrhea, unspecified Condition: Good Disposition: HOME, SELF-CARE Instructions: Abdominal Pain ([facility]), Diarrhea, Nonspecific ([facility]), Observation for Appendicitis ([facility]), Urinary Tract Infection ([facility]), Vomiting ([facility]) Prescriptions: Cephalexin Monohydrate [Keflex 500 mg Capsule] 500 mg PO BID 5 Days #14 capsule Ibuprofen [Motrin 600 Mg Tablet] 600 mg PO TID #15 tablet Ondansetron HCl [Zofran 4 mg Tablet] 1 - 2 tab PO Q4H PRN #10 tablet PRN Reason: Referrals: JOSÉ MIGUEL GUZMÁN MD [Primary Care Provider] - Follow up as needed
[2017-10-06] MEDS ORDERED: NORMAL SALINE 1000 ML 1,000 ML IV ONE (20:41)
[2017-10-06 21:40] VITALS: BP 120/67
--- NOTE | 2017-10-06 22:32 | EKG REPORT ---
SEVERITY:- ABNORMAL ECG - SINUS TACHYCARDIA LEFT BUNDLE BRANCH BLOCK : Confirmed by: Hermila Pérez 06-Oct-2017 22:31:49
== END 2017-10-06 21:43 | disposition home or self-care (01) ==
LOC: ER 16:04
DX: N39.0 Urinary tract infection, site not specified (principal); R11.2 Nausea with vomiting, unspecified; R10.9 Unspecified abdominal pain; R19.7 Diarrhea, unspecified; R42 Dizziness and giddiness; I10 Essential (primary) hypertension; F41.9 Anxiety disorder, unspecified; M54.5 Low back pain; R11.0 Nausea; Z87.891 Personal history of nicotine dependence
CPT/HCPCS: 93005; 99285; 96361; 96374; 96375; 36415; 87040; 87086; 85025; 85610; 81025; 80053; 81001; 82803; 83605; 71046; 74177; 93010; J3490; J1885; J1170; J2405; J7030

== ENCOUNTER 2019-12-09 02:35 | Inpatient (IN) | payer SELFPAY ==
[2019-12-09 03:15] LABS: ABSOLUTE EOSINOPHILS # (AUTO) 0.1 10^3/uL (0.0-0.6); ABSOLUTE MONOCYTES (AUTO) 0.3 10^3/uL (0.1-1.4); ABSOLUTE NEUT (AUTO) 5.8 10^3/uL (1.7-8.2); BASOPHILS % (AUTO) 0.4 % (0-2); EOSINOPHILS % (AUTO) 0.9 % (0-6); HEMATOCRIT 38.5 % (36.0-47.0); HEMOGLOBIN 13.2 g/dL (12.0-15.5); LYMPHOCYTES % (AUTO) 23.9 % (13-45); MEAN CORPUSCULAR HEMOGLOBIN 31.8 pg (27.0-33.4); MEAN CORPUSCULAR HGB CONC 34.2 g/dL (32.0-36.0); MEAN CORPUSCULAR VOLUME 93 fl (80-97); MONOCYTES % (AUTO) 3.5 % (3-13); PLATELET COUNT 284 10^3/uL (150-450); RED BLOOD COUNT 4.14 10^6/uL (3.72-5.28); RED CELL DISTRIBUTION WIDTH 13.2 % (11.5-14.0); SEGMENTED NEUTROPHILS % (AUTO) 71.3 % (42-78); TOTAL CELLS COUNTED % (AUTO) 100 %; WHITE BLOOD COUNT 8.2 10^3/uL (4.0-10.5)
[2019-12-09 03:33] LABS: ALBUMIN 4.1 g/dL (3.5-5.0); ALKALINE PHOSPHATASE 72 U/L (38-126); ANION GAP 11 (5-19); ASPARTATE AMINO TRANSFERASE 27 U/L (14-36); BILIRUBIN,DIRECT 0.2 mg/dL (0.0-0.4); BILIRUBIN,TOTAL 0.4 mg/dL (0.2-1.3); BLOOD UREA NITROGEN 16 mg/dL (7-20); CALCIUM 8.8 mg/dL (8.4-10.2); CARBON DIOXIDE 21 mmol/L (22-30); CHLORIDE 107 mmol/L (98-107); GLUCOSE 234 mg/dL (75-110); POTASSIUM 3.2 mmol/L (3.6-5.0); TOTAL PROTEIN 6.5 g/dL (6.3-8.2)
[2019-12-09] MEDS ORDERED: DEXAMETHASONE SOD PHOS INJ 10 MG/1 ML VIAL IV ONE (03:48)
--- NOTE | 2019-12-09 03:51 | ER Document Report ---
ED General - General TRAVEL OUTSIDE OF THE [place] IN LAST 30 DAYS: No - HPI Associated symptoms: Other - See HPI Exacerbated by: Other - See HPI Relieved by: Other - See HPI <JC SANCHEZ IV - Last Filed: 12/09/19 04:08> <SEKOUJAIMEFRANCHESKACORNELIO Mendes - Last Filed: 12/09/19 10:28> - General Chief Complaint: Shortness Of Breath Stated Complaint: DIFFICULTY BREATHING Time Seen by Provider: 12/09/19 03:20 - HPI Context: This is a 39-year-old female presenting to the emergency department via EMS for evaluation of worsening shortness of breath over the past few days. Patient states that she noted tonight that she had a cough that was productive of frothy white sputum. Patient denies fever or chills. 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 Patient is aware that she has a history of a pre-existing left bundle branch block but denies any prior history of known OK. Patient denies any type of chest pain with her shortness of breath. Patient denies loss of sense of taste or sense of smell. Patient states that she usually wears CPAP at night but has not been wearing it the past couple weeks because she has had an early lot of sinus congestion. Patient denies prior history of pulmonary embolism. Patient is unaware of any prior history of congestive heart failure. Patient states her last echocardiogram was approximately 2 years ago. Patient states any type of exertion worsens her dyspnea and that sitting still seems to alleviate her symptoms some. Patient states that she is an ex-smoker times several months but date for a few months but has not been doing that either at least 4 3 or 4 months now. Patient denies orthopnea or excessive swelling in her lower extremities. (JC ASNCHEZ IV) - Related Data Allergies/Adverse Reactions: moxifloxacin HCl [From Avelox] Allergy (Verified 03/06/17 14:34) blisters in nose Past Medical History - General Information source: Patient - Social History Smoking Status: Former Smoker Frequency of alcohol use: None Drug Abuse: None Family History: Reviewed & Not Pertinent, Arthritis, DM, Hypertension, Malignancy. denies: CAD, COPD, CVA, Hyperlipidemia, Thyroid Disfunction - Past Medical History Cardiac Medical History: Reports: Hx Hypertension Pulmonary Medical History: Reports: Hx Bronchitis Renal/ Medical History: Denies: Hx Peritoneal Dialysis Skin Medical History: Reports Hx Eczema Psychiatric Medical History: Reports: Hx Anxiety Past Surgical History: Reports: Hx Cholecystectomy, Hx Tubal Ligation - Immunizations Hx Diphtheria, Pertussis, Tetanus Vaccination: No <JC SANCHEZ IV - Last Filed: 12/09/19 04:08> Review of Systems - Review of Systems Constitutional: No symptoms reported EENT: No symptoms reported Cardiovascular: Dyspnea. denies: Orthopnea Respiratory: No symptoms reported Gastrointestinal: No symptoms reported Genitourinary: No symptoms reported Female Genitourinary: No symptoms reported Musculoskeletal: No symptoms reported Skin: No symptoms reported Hematologic/Lymphatic: No symptoms reported Neurological/Psychological: No symptoms reported -: Yes All other systems reviewed and negative <JC SANCHEZ IV - Last Filed: 12/09/19 04:08> Physical Exam <JC SANCHEZ IV - Last Filed: 12/09/19 04:08> - Vital signs Vitals: Temp 98.9 F 12/09/19 02:45 - Notes Notes: CONSTITUTIONAL [Vital signs reviewed, Patient appears comfortable, Alert and oriented X 3, Normal stature.] HEAD [Atraumatic, Normocephalic.] EYES [Eyes are normal to inspection, No discharge from eyes, Extraocular muscles intact, Sclera are normal, Conjunctiva are normal.] ENT Nose examination normal, Posterior pharynx normal, Mouth normal to inspection.] NECK [Normal ROM, No jugular venous distention, No meningeal signs, no carotid bruit.] RESPIRATORY CHEST [Chest is nontender, Breath sounds normal, No respiratory distress.] CARDIOVASCULAR [RRR, No murmurs, Normal S1 S2, No rub, No gallop.] ABDOMEN [Abdomen is nontender, No pulsatile masses, No other masses, Bowel sounds normal, No distension, No peritoneal signs, No hernias.] BACK [There is no CVA Tenderness, There is no tenderness to palpation, Normal inspection.] UPPER EXTREMITY [Inspection normal, No cyanosis, No clubbing, No edema, 2+ radial pulses.] LOWER EXTREMITY [Inspection normal, No cyanosis, No clubbing, No edema, No calf tenderness, 2+ femoral pulses.] NEURO [No focal motor deficits, No focal sensory deficits, Speech normal.] SKIN [Skin is warm, Skin is dry, Skin is normal color.] PSYCHIATRIC [Normal affect. ] (JC SANCHEZ IV) Course - Laboratory Result Diagrams: 12/09/19 03:04 12/09/19 03:04 - Diagnostic Test Radiology reviewed: Reports reviewed <JC SANCHEZ IV - Last Filed: 12/09/19 04:08> - Laboratory Result Diagrams: 12/09/19 03:04 12/09/19 03:04 <DOUG RUBIO - Last Filed: 12/09/19 10:28> - Vital Signs Vital signs: Temp Pulse Resp BP Pulse Ox 98.9 F 20 160/99 H 97 12/09/19 02:45 12/09/19 08:00 12/09/19 05:09 12/09/19 08:00 - Laboratory Laboratory results interpreted by me: 12/09/19 12/09/19 12/09/19 03:04 03:04 04:30 Potassium 3.2 L Carbon Dioxide 21 L Glucose 234 H POC Glucose NT-Pro-B Natriuret Pep 667 H Urine Protein 100 H Urine Glucose (UA) 50 H Urine Ketones TRACE H 12/09/19 04:37 Potassium Carbon Dioxide Glucose POC Glucose 207 H NT-Pro-B Natriuret Pep Urine Protein Urine Glucose (UA) Urine Ketones - EKG Interpretation by Me Additional EKG results interpreted by me: 12/09/19 04:13 EKG obtained on 12/09/2019 at 0303 hrs. was interpreted by this MD. Findings: Sinus tachycardia, rate 122, left bundle branch is present that can be seen on prior EKG from 10/06/2017, there are no obvious variations in morphology between the 2 EKGs and suggest acute ST elevation, depression, reciprocal changes or other findings to suggest acute myocardial ischemia or infarction. Impression: Sinus tachycardia with left bundle branch block and nonspecific ST segments. (JC SANCHEZ IV) Discharge <JC SANCHEZ IV - Last Filed: 12/09/19 04:08> - Discharge Admitting Provider: Paige (Hospitalist) Unit Admitted: Telemetry <DOUG RUBIO - Last Filed: 12/09/19 10:28> - Discharge Clinical Impression: Hypoxia, Person under investigation for COVID-19 Congestive heart failure Qualifiers: Heart failure type: unspecified Heart failure chronicity: acute Qualified Code(s): I50.9 - Heart failure, unspecified Condition: Stable Disposition: ADMITTED INPATIENT
--- NOTE | 2019-12-09 04:01 | RADIOLOGY REPORT (SQ) ---
EXAM DESCRIPTION: XR CHEST 1 VIEW COMPLETED DATE/TME: 12/09/2019 03:05 CLINICAL HISTORY: 39 years, Female, SOB COMPARISON: 10/06/2017 NUMBER OF VIEWS: One TECHNIQUE: AP view the chest LIMITATIONS: None. FINDINGS: The lungs are clear. The heart is normal in size. No pneumothorax or pleural effusion. No acute fracture. IMPRESSION: No acute cardiopulmonary abnormality. copyright 2010 [employer]- All Rights Reserved
[2019-12-09 05:02] LABS: APPEARANCE,URINE CLEAR; BILIRUBIN,URINE NEGATIVE (NEGATIVE); COLOR,URINE STRAW; GLUCOSE, URINE 50 mg/dL (NEGATIVE); KETONES,URINE TRACE mg/dL (NEGATIVE); LEUKOCYTE ESTERASE,URINE NEGATIVE (NEGATIVE); NITRITE,URINE NEGATIVE (NEGATIVE); PROTEIN,URINE 100 mg/dL (NEGATIVE); URINE SPECIFIC GRAVITY 1.012; UROBILINOGEN,URINE NEGATIVE mg/dL (<2.0)
[2019-12-09 05:09] LABS: A TYPE INFLUENZA AG NEGATIVE (NEGATIVE); B INFLUENZA AG NEGATIVE (NEGATIVE)
[2019-12-09 05:43] LABS: VENOUS BLOOD BASE EXCESS -2.8 mmol/L; VENOUS BLOOD HCO3 21.5 mmol/L (20-32); VENOUS BLOOD PCO2 36.1 mmHg (35-63); VENOUS BLOOD PH 7.39 (7.30-7.42)
[2019-12-09 05:47] LABS: INTERNATIONAL RATION (INR) 0.91; PROTHROMBIN TIME 12.5 SEC (11.4-15.4)
--- NOTE | 2019-12-09 07:27 | RADIOLOGY REPORT (SQ) ---
CT angiogram chest with contrast on 12/09/2019 at 6:25 AM CLINICAL INDICATION: Tachycardia, shortness of breath TECHNIQUE: Multiple axial images are obtained throughout the chest following the administration of IV contrast. Computer generated 3D reconstructions/MIPS were performed. This exam was performed according to our departmental dose-optimization program, which includes automated exposure control, adjustment of the mA and/or kV according to patient size and/or use of iterative reconstruction technique. Total DLP is 701.53 mGy*cm. COMPARISON: CT abdomen and lower chest from 10/06/2017 FINDINGS: There is no pleural or pericardial effusion. There is no thoracic aortic aneurysm or dissection. There is mild fatty infiltration of the liver. The patient is status post cholecystectomy. There is a 2.5 cm right adrenal myelolipoma which should be considered benign with no follow-up recommended. Visualized upper abdomen is otherwise unremarkable. There is no thoracic adenopathy. There are no filling defects within the pulmonary arteries to suggest pulmonary embolus. There are bilateral groundglass opacities with some mild areas of crazy paving in the lung bases. Most likely this represents infectious etiology and consider viral etiologies although edema would also be in the differential. No bony abnormality is noted. IMPRESSION: 1. Bilateral lower lung groundglass opacities with some areas of mild crazy paving. While this could be related to edema somewhat favor an atypical infectious etiology. Imaging features can be seen with viral pneumonia, though are nonspecific and can occur with a variety of infectious and noninfectious processes. [PneInd] Reference: https://pubs.rsna.org/doi/full/10.1148/ryct.4407176570 2. No evidence of pulmonary embolus. 3. Fatty infiltration of the liver.
[2019-12-09] MEDS ORDERED: CEFTRIAXONE 1 GM/D5W RTU 1 GM/50 ML RTUPB IV ONE (08:43)
[2019-12-09] MEDS ORDERED: AZITHROMYCIN INJ 500 MG VIAL IV ONE (08:44)
[2019-12-09] MEDS ORDERED: POTASSIUM CHLORIDE 10 MEQ TABLET.ER PO ONE ×2 (09:16→18:00)
[2019-12-09] MEDS ORDERED: FUROSEMIDE INJ/PF 20 MG/2 ML SDV IV ONE (09:16)
--- NOTE | 2019-12-09 09:17 | ER Document Report ---
Doctor's Note Notes: 12/09/19 09:14 Patient is a 39-year-old female, former smoker, quit vaping several months ago, who presents to the emergency department for evaluation of sudden onset shortness of breath. She woke at 1 AM to get a glass of water, walked down the stairs, became extremely short of breath. She states she came up the stairs, started coughing, produced some white frothy appearing fluid. Before that she felt fine. She denies any chest pain. No fevers or chills. No nausea or vomiting. She is eating and drinking normally. She works going up and down ladders, had no problems before that. She denies any anosmia. No other acute symptoms. Care of this patient was turned over to me during my shift. In short the patient was found to be hypoxic, they were still waiting for CT angiogram of the chest to be performed. CT angiogram showed bibasilar opacities, concerning for atypical infection, viral pneumonia, or possibly edema. Patient has no known history of CHF to her knowledge. She does have a mildly elevated proBNP. O she has 1+ pitting edema pretibial bilaterally, patient states this is stable. N exam today this is a pleasant 39-year-old female who appears her stated age. Heart is tachycardic with normal S1-S2. Patient has bibasilar rales. Patient is covered for infection with Rocephin and Zithromax. She is Covid pending. I did order Lasix will order Lasix, 20 mg IV, and contact the medicine team for admission. 12/09/19 09:18 12/09/19 10:[address] Gibson, he will admit the patient for further care.
[2019-12-09] MEDS ORDERED: ACETAMINOPHEN 325 MG TABLET PO PRN (12:25)
[2019-12-09] MEDS ORDERED: MAG HYDROX/AL HYDROX/SIMETH SUSP 30 ML UDCUP PO PRN (12:31)
[2019-12-09] MEDS ORDERED: ONDANSETRON HCL INJ/PF 4 MG/2 ML SDV IV PRN (12:31)
[2019-12-09] MEDS ORDERED: CYCLOBENZAPRINE HCL 10 MG TABLET PO PRN (12:32)
[2019-12-09] MEDS ORDERED: ALBUTEROL SULFATE HFA (90 MCG/PUFF) 8 GM MDI IH PRN (12:55)
--- NOTE | 2019-12-09 12:57 | PDOC H&P ---
History of Present Illness Admission Date/PCP: 12/09/19 10:52 Patient complains of: Shortness of breath History of Present Illness: URIAH KATZ is a 39 year old female history of GIUSEPPE on CPAP, irritable bowel syndrome, chronic left bundle branch block, who presents to the hospital for evaluation of acute onset shortness of breath. Patient states episode began early this morning when she got out of bed and ambulated to the bathroom. She felt very dyspneic at the time. She was unable to recover and could not catch her breath at all and subsequently called the ambulance. She did not experience any chest pain at the time. She endorses having significant cough this morning and last night producing whitish frothy sputum. She denies any fever or chills. Denies noticing any significant dyspnea prior to this but does admit to having mild decrease in exercise tolerance over the past week. She denies any orthopnea or PND. States she has chronic mild swelling in her legs from being on her foot all day at work. 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 She has a history of vaping but has stopped 4 months ago. She does work with a colleague who tested positive for COVID-19 but states that this person was on isolation at home and was cleared to return last Thursday at which point they have interacted. On arrival of ambulance, patient was noted to be hypoxic with pulse ox in the 70s. When in the ED she was noted to be in the 80s on room air. She was placed on nasal cannula and is now maintaining adequate pulse ox of about 2 to 3 L. CTA showed no PE but does show groundglass opacities in her lungs. Blood work is actually not significant. Flu test is negative. Past Medical History Cardiac Medical History: Denies: Congestive Heart Failure, Coronary Artery Disease Pulmonary Medical History: Reports: Bronchitis, Sleep Apnea Endocrine Medical History: Denies: Diabetes Mellitus Type 1, Diabetes Mellitus Type 2 GI Medical History: Reports: Other - Irritable bowel syndrome Skin Medical History: Reports: Eczema Past Surgical History Past Surgical History: Reports: Cholecystectomy, Tubal Ligation Social History Lives with: Other - With her children Smoking Status: Former Smoker Electronic Cigarette use?: Yes - Quit 4 months ago Number of Years Smokin Frequency of Alcohol Use: None Hx Recreational Drug Use: No Drugs: None Hx Prescription Drug Abuse: No - Advance Directive Resuscitation Status: Full Code Family History Family History: Arthritis, DM, Hypertension, Malignancy. denies: CAD, COPD, CVA, Hyperlipidemia, Thyroid Disfunction Parental Family History Reviewed: Yes Children Family History Reviewed: NA Sibling(s) Family History Reviewed.: Yes Medication/Allergy Home Medications: No Home Medications 12/09/19 Allergies/Adverse Reactions: moxifloxacin HCl [From Avelox] Allergy (Verified 03/06/17 14:34) blisters in nose Review of Systems Constitutional: ABSENT: chills, fatigue, fever(s) Eyes: ABSENT: visual disturbances Ears: ABSENT: hearing changes Nose, Mouth, and Throat: ABSENT: headache(s) Cardiovascular: PRESENT: edema. ABSENT: chest pain, orthropnea Respiratory: PRESENT: cough, dyspnea, sputum. ABSENT: hemoptysis Gastrointestinal: ABSENT: abdominal pain, diarrhea, hematemesis, hematochezia, nausea, vomiting Genitourinary: ABSENT: dysuria Musculoskeletal: ABSENT: back pain Integumentary: ABSENT: pruritus Neurological: ABSENT: confusion, dizziness Endocrine: ABSENT: polyuria Allergic/Immunologic: PRESENT: other - Rhinorrhea Physical Exam Vital Signs: Temp Pulse Resp BP Pulse Ox 98.0 F 17 137/96 H 97 12/09/19 11:16 12/09/19 11:01 12/09/19 11:01 12/09/19 11:01 Intake & Output 12/08/19 12/09/19 12/10/19 06:59 06:59 06:59 Intake Total 50 Balance 50 Weight 106.594 kg General appearance: PRESENT: no acute distress, cooperative Mouth exam: PRESENT: neck supple Neck exam: ABSENT: JVD Respiratory exam: PRESENT: crackles - Bilateral lung valentino, rales, symmetrical, unlabored. ABSENT: tachypnea, wheezes Cardiovascular exam: PRESENT: RRR, +S1, +S2. ABSENT: tachycardia Extremities exam: PRESENT: other - Trace nonpitting edema Neurological exam: PRESENT: alert, awake, oriented to person, oriented to place, oriented to time, oriented to situation Psychiatric exam: ABSENT: agitated, anxious Focused psych exam: ABSENT: pressured speech Skin exam: PRESENT: intact. ABSENT: jaundice Results Laboratory Results: 12/09/19 03:04 12/09/19 03:04 12/09/19 12/09/19 12/09/19 03:04 03:04 03:04 WBC 8.2 RBC 4.14 Hgb 13.2 Hct 38.5 MCV 93 MCH 31.8 MCHC 34.2 RDW 13.2 Plt Count 284 Seg Neutrophils % 71.3 VBG pH 7.39 VBG pCO2 36.1 VBG HCO3 21.5 VBG Base Excess -2.8 Sodium 139.2 Potassium 3.2 L Chloride 107 Carbon Dioxide 21 L Anion Gap 11 BUN 16 Creatinine 0.91 Est GFR ( Amer) > 60 Glucose 234 H Lactic Acid Calcium 8.8 Total Bilirubin 0.4 AST 27 Alkaline Phosphatase 72 Total Protein 6.5 Albumin 4.1 Urine Color Urine Appearance Urine pH Ur Specific [place] Urine Protein Urine Glucose (UA) Urine Ketones Urine Blood Urine Nitrite Ur Leukocyte Esterase Urine WBC (Auto) Urine RBC (Auto) 12/09/19 12/09/19 12/09/19 03:04 04:30 06:30 WBC RBC Hgb Hct MCV MCH MCHC RDW Plt Count Seg Neutrophils % VBG pH VBG pCO2 VBG HCO3 VBG Base Excess Sodium Potassium Chloride Carbon Dioxide Anion Gap BUN Creatinine Est GFR ( Amer) Glucose Lactic Acid 1.5 2.1 Calcium Total Bilirubin AST Alkaline Phosphatase Total Protein Albumin Urine Color STRAW Urine Appearance CLEAR Urine pH 6.0 Ur Specific [place] 1.012 Urine Protein 100 H Urine Glucose (UA) 50 H Urine Ketones TRACE H Urine Blood NEGATIVE Urine Nitrite NEGATIVE Ur Leukocyte Esterase NEGATIVE Urine WBC (Auto) 3 Urine RBC (Auto) 2 12/09/19 09:54 WBC RBC Hgb Hct MCV MCH MCHC RDW Plt Count Seg Neutrophils % VBG pH VBG pCO2 VBG HCO3 VBG Base Excess Sodium Potassium Chloride Carbon Dioxide Anion Gap BUN Creatinine Est GFR ( Amer) Glucose Lactic Acid 1.5 Calcium Total Bilirubin AST Alkaline Phosphatase Total Protein Albumin Urine Color Urine Appearance Urine pH Ur Specific [place] Urine Protein Urine Glucose (UA) Urine Ketones Urine Blood Urine Nitrite Ur Leukocyte Esterase Urine WBC (Auto) Urine RBC (Auto) 12/09/19 12/09/19 03:04 03:04 Troponin I < 0.012 NT-Pro-B Natriuret Pep 667 H Impressions: Chest X-Ray 12/09/19 03:05 IMPRESSION: No acute cardiopulmonary abnormality. copyright 2011 [employer]- All Rights Reserved Chest/Abdomen CTA 12/09/19 05:36 IMPRESSION: 1. Bilateral lower lung groundglass opacities with some areas of mild crazy paving. While this could be related to edema somewhat favor an atypical infectious etiology. Imaging features can be seen with viral pneumonia, though are nonspecific and can occur with a variety of infectious and noninfectious processes. [PneInd] Reference: https://pubs.rsna.org/doi/full/10.1148/ryct.7666385073 2. No evidence of pulmonary embolus. 3. Fatty infiltration of the liver. Assessment and Plan - Diagnosis (1) Acute respiratory failure with hypoxia Is this a current diagnosis for this admission?: Yes Plan: Patient significantly hypoxic on presentation SPO2 in the 70s. Currently tolerating on 2 L nasal cannula. Etiology at this moment is uncertain but groundglass opacities in her lower lungs seen on CT are more concerning for viral pneumonia at this point. Await results of Covid test. Even though CHF is less likely, we will go ahead and treat for this pending echocardiogram results especially given that she has chronic left bundle branch as such a young age. (2) Suspected COVID-19 virus infection Is this a current diagnosis for this admission?: Yes Plan: She has fine dry sounding crackles in her lungs bilaterally and groundglass opacities on CT concerning for viral or atypical pneumonia. Has no leukocytosis or fevers. We will continue on dexamethasone and start on vitamin and zinc supplements. COVID-19 test is pending -if positive, will start on remdesivir Ceftriaxone and azithromycin Obtain sputum culture Follow-up blood culture results (3) Suspected CHF (congestive heart failure) Is this a current diagnosis for this admission?: Yes Plan: CHF is less likely but given patient's left bundle branch block, will treat with IV Lasix, strict I's and O's, 1500 cc fluid restriction and obtain echocardiogram. (4) Obstructive sleep apnea Is this a current diagnosis for this admission?: Yes Plan: Uses CPAP of 7 at home but has not used it in a while due to nasal congestion. I will keep it on hold pending a COVID-19 test. (5) Left bundle branch block Is this a current diagnosis for this admission?: Yes Plan: Chronic Patient states that she has been worked up for this by Dr. Pérez with a stress test 2 to 3 years ago which showed no evidence of occlusive disease. Depending on the results of her echo, will see if she needs any further work-up. - Time Time Spent with patient: 35 or more minutes Anticipated Discharge Disposition: Home, Self Care Anticipated Discharge Timeframe: within 72 hours
[2019-12-09] MEDS: ZINC SULFATE 220 MG CAPSULE PO SCH (13:39)
[2019-12-09] MEDS: CHOLECALCIFEROL (D3) 1,000 UNIT (25 MCG) TABLET PO SCH (13:39)
[2019-12-09] MEDS: ASCORBIC ACID 500 MG TABLET PO SCH ×2 (13:40→17:10)
[2019-12-09] MEDS: ENOXAPARIN SODIUM INJ 40 MG/0.4 ML DISP.SYRIN SUBCUT SCH (13:40)
--- NOTE | 2019-12-09 16:15 | EKG REPORT ---
SEVERITY:- ABNORMAL ECG - SINUS TACHYCARDIA PROBABLE LEFT ATRIAL ABNORMALITY LEFT BUNDLE BRANCH BLOCK : Confirmed by: Raffaele Thompson MD 09-Dec-2019 16:14:32
[2019-12-09] MEDS: FUROSEMIDE INJ/PF 20 MG/2 ML SDV IV SCH (17:09)
[2019-12-09] MEDS: FLUTICASONE NASAL SPRAY 50 MCG/SPRY 120 SPRAY/16 GM NASL SCH (21:05)
[2019-12-10 06:22] LABS: ABSOLUTE LYMPHOCYTES (AUTO) 2.1 10^3/uL (0.5-4.7); ABSOLUTE MONOCYTES (AUTO) 0.7 10^3/uL (0.1-1.4); ABSOLUTE NEUT (AUTO) 12.5 10^3/uL (1.7-8.2); BASOPHILS % (AUTO) 0.3 % (0-2); EOSINOPHILS % (AUTO) 0.1 % (0-6); HEMATOCRIT 37.5 % (36.0-47.0); LYMPHOCYTES % (AUTO) 13.7 % (13-45); MEAN CORPUSCULAR HEMOGLOBIN 31.8 pg (27.0-33.4); MEAN CORPUSCULAR HGB CONC 34.6 g/dL (32.0-36.0); MEAN CORPUSCULAR VOLUME 92 fl (80-97); MONOCYTES % (AUTO) 4.9 % (3-13); PLATELET COUNT 349 10^3/uL (150-450); RED BLOOD COUNT 4.08 10^6/uL (3.72-5.28); RED CELL DISTRIBUTION WIDTH 13.6 % (11.5-14.0); TOTAL CELLS COUNTED % (AUTO) 100 %; WHITE BLOOD COUNT 15.4 10^3/uL (4.0-10.5)
--- NOTE | 2019-12-10 06:58 | XCELERA REPORT ---
[address] [address] Transthoracic Echocardiogram Report Name: URIAH KATZ Age: 39 yrs Gender: Female : 1980 Patient Status: Emergency Patient Location: [facility] [place]^A Study Date: 12/09/2019 03:23 PM Height: 63 in Weight: 235 lb BSA: 2.1 m2 Procedure: A complete two-dimensional transthoracic echocardiogram was performed (2D, M-mode, spectral and color flow Doppler). The study was technically difficult with many images being suboptimal in quality. Reason For Study: possible new onset heart failure Ordering Physician: VIRAJ CHAMBERS Performed By: Ivy Grissom Interpretation Summary The patient was mildly tachycardic during the study. Technically limited study with poor echocardiographic windows. The left ventricle is grossly normal size. Left ventricular systolic function is normal. LV EF is 50%. LV diastolic function could not be adequately assessed. Regional wall motion abnormalities cannot be excluded due to limited visualization. Valvular structures were not visualized adequately. Cannot comment on valvular regurgitation due to t he poor quality of the study. Trace anterior pericardial effusion, hemodynamically insignificant. No prior studies for comparison. MMode/2D Measurements & Calculations RVDd: 1.6 cm LVIDd: 5.1 cm FS: 29.4 % Ao root diam: 2.4 cm IVSd: 1.1 cm LVIDs: 3.6 cm EDV(Teich): 122.8 ml Ao root area: 4.5 cm2 LVPWd: 1.1 cm ESV(Teich): 54.1 ml LA dimension: 3.7 cm EF(Teich): 56.0 % Doppler Measurements & Calculations MV E max estee: MV P1/2t max estee: Ao V2 max: LV V1 max P.2 cm/sec 168.4 cm/sec 154.7 cm/sec 5.6 mmHg MV P1/2t: 46.9 msec Ao max PG: LV V1 max: MVA(P1/2t): 4.7 cm2 9.6 mmHg 117.9 cm/sec MV dec slope: 1052 cm/sec2 MV dec time: 0.17 sec PA V2 max: MV P1/2t-pr_phl: 89.3 cm/sec 46.9 msec PA max P.2 mmHg Left Ventricle The left ventricle is grossly normal size. Left ventricular systolic function is normal. LV EF is 50%. LV diastolic function could not be adequately assessed. Regional wall motion abnormalities cannot be excluded due to limited visualization. Right Ventricle The right ventricle is grossly normal size. The right ventricular systolic function is normal. Atria The right atrium is normal. The left atrial size is normal. Interarterial septum not well visualized and not well dopplered. Cannot comment on ASD/PFO presence. Mitral Valve The mitral valve is not well visualized. Aortic Valve The aortic valve is not well visualized secondary to technical limitations. Tricuspid Valve The tricuspid valve is not well visualized secondary to technical limitations. Pulmonic Valve The pulmonic valve is not well visualized. Effusions Trace anterior pericardial effusion, hemodynamically insignificant. : VIRAJ CHAMBERS Antonio
[2019-12-10 07:05] LABS: ALBUMIN 4.3 g/dL (3.5-5.0); ALKALINE PHOSPHATASE 59 U/L (38-126); ANION GAP 11 (5-19); ASPARTATE AMINO TRANSFERASE 20 U/L (14-36); BILIRUBIN,DIRECT 0.3 mg/dL (0.0-0.4); BILIRUBIN,TOTAL 0.5 mg/dL (0.2-1.3); BLOOD UREA NITROGEN 20 mg/dL (7-20); C-REACTIVE PROTEIN 13.1 mg/L (<10.0); CALCIUM 9.7 mg/dL (8.4-10.2); CARBON DIOXIDE 22 mmol/L (22-30); CHLORIDE 105 mmol/L (98-107); CREATINE KINASE 92 U/L (30-135); GLUCOSE 164 mg/dL (75-110); POTASSIUM 4.6 mmol/L (3.6-5.0); TOTAL PROTEIN 7.1 g/dL (6.3-8.2)
[2019-12-10] MEDS ORDERED: DEXTROSE 40% GEL 15 GM TUBE PO PRN ×2 (07:48)
[2019-12-10] MEDS ORDERED: DEXTROSE 50%-WATER 25 GM/50 ML DISP.SYRIN IV PRN ×2 (07:48)
[2019-12-10] MEDS ORDERED: GLUCAGON,HUMAN RECOMB 1 MG INJ IM PRN (07:48)
[2019-12-10] MEDS ORDERED: INFLUENZA QUAD (6MOS+) 2020-21 VAC 0.5 ML SYR IM ONE (08:00)
[2019-12-10] MEDS: INSULIN LISPRO 100 UNIT/ML 3 ML VIAL SUBCUT SCH ×4 (08:53→21:46)
[2019-12-10] MEDS: POTASSIUM CHLORIDE 10 MEQ TABLET.ER PO SCH (11:39)
[2019-12-10] MEDS: DEXAMETHASONE SOD PHOS INJ 10 MG/1 ML VIAL IV SCH (11:39)
[2019-12-10] MEDS: ASCORBIC ACID 500 MG TABLET PO SCH ×2 (11:40→17:10)
[2019-12-10] MEDS: AZITHROMYCIN 250 MG TABLET PO SCH (11:41)
[2019-12-10] MEDS: CHOLECALCIFEROL (D3) 1,000 UNIT (25 MCG) TABLET PO SCH (11:41)
[2019-12-10] MEDS: ZINC SULFATE 220 MG CAPSULE PO SCH (11:41)
[2019-12-10] MEDS: FLUTICASONE NASAL SPRAY 50 MCG/SPRY 120 SPRAY/16 GM NASL SCH ×2 (11:41→21:45)
[2019-12-10] MEDS: FUROSEMIDE INJ/PF 20 MG/2 ML SDV IV SCH ×2 (11:41→17:09)
[2019-12-10] MEDS: ENOXAPARIN SODIUM INJ 40 MG/0.4 ML DISP.SYRIN SUBCUT SCH (11:42)
[2019-12-10] MEDS: CEFTRIAXONE 2 GM/D5W RTU 2 GM/50 ML RTUPB IV SCH (11:42)
--- NOTE | 2019-12-10 14:54 | PDOC PROGRESS REPORT ---
Subjective Progress Note for:: 12/10/19 Subjective:: Patient seen on morning rounds. She is resting comfortably in bed. She is tolerating 2 L nasal cannula with oxygen sats in the 100s. She continues to experience productive cough and occasional shortness of breath, though this has improved from yesterday. She provides no further questions or complaints to me today. Reason For Visit: HYPOXIA, PNEUMONIA, ?CHF Physical Exam Vital Signs: Temp Pulse Resp BP Pulse Ox 98.1 F 96 16 145/77 H 100 12/10/19 11:01 12/10/19 11:01 12/10/19 11:01 12/10/19 11:01 12/10/19 11:01 Intake & Output 12/09/19 12/10/19 12/11/19 06:59 06:59 06:59 Intake Total 50 360 Output Total 1650 Balance 50 -1290 Weight 106.594 kg 103.3 kg General appearance: PRESENT: no acute distress, cooperative Head exam: PRESENT: atraumatic, normocephalic Eye exam: PRESENT: EOMI, PERRLA Mouth exam: PRESENT: dry mucosa, neck supple Neck exam: PRESENT: full ROM. ABSENT: carotid bruit Respiratory exam: PRESENT: crackles - bibasilar crackles, rales, symmetrical, unlabored. ABSENT: tachypnea, wheezes Cardiovascular exam: PRESENT: RRR, +S1, +S2, tachycardia GI/Abdominal exam: PRESENT: normal bowel sounds, soft. ABSENT: tenderness Extremities exam: PRESENT: other - Nonpitting edema Neurological exam: PRESENT: alert, awake, oriented to person, oriented to place, oriented to time, oriented to situation. ABSENT: altered Psychiatric exam: PRESENT: appropriate affect, normal mood Skin exam: PRESENT: dry, intact, warm. ABSENT: jaundice Results Laboratory Results: 12/10/19 05:10 12/10/19 05:10 12/10/19 12/10/19 12/10/19 05:10 05:10 05:10 WBC 15.4 H RBC 4.08 Hgb 13.0 Hct 37.5 MCV 92 MCH 31.8 MCHC 34.6 RDW 13.6 Plt Count 349 Seg Neutrophils % 81.0 H Sodium 137.5 Potassium 4.6 Chloride 105 Carbon Dioxide 22 Anion Gap 11 BUN 20 Creatinine 0.74 Est GFR ( Amer) > 60 Glucose 164 H Calcium 9.7 Magnesium 2.1 Ferritin 22.50 Total Bilirubin 0.5 AST 20 Alkaline Phosphatase 59 C-Reactive Protein 13.1 H Total Protein 7.1 Albumin 4.3 Blood Type A POSITIVE Antibody Screen NEGATIVE 12/09/19 12/09/19 12/10/19 03:04 03:04 05:10 Creatine Kinase 92 Troponin I < 0.012 NT-Pro-B Natriuret Pep 667 H Impressions: Chest X-Ray 12/09/19 03:05 IMPRESSION: No acute cardiopulmonary abnormality. copyright 2011 [employer]- All Rights Reserved Chest/Abdomen CTA 12/09/19 05:36 IMPRESSION: 1. Bilateral lower lung groundglass opacities with some areas of mild crazy paving. While this could be related to edema somewhat favor an atypical infectious etiology. Imaging features can be seen with viral pneumonia, though are nonspecific and can occur with a variety of infectious and noninfectious processes. [PneInd] Reference: https://pubs.rsna.org/doi/full/10.1148/ryct.9518848154 2. No evidence of pulmonary embolus. 3. Fatty infiltration of the liver. Assessment and Plan - Diagnosis (1) Acute respiratory failure with hypoxia Is this a current diagnosis for this admission?: Yes Plan: Patient significantly hypoxic on presentation SPO2 in the 70s. Etiology at this moment is uncertain but groundglass opacities in her lower lungs seen on CT are more concerning for viral pneumonia at this point. Covid pending. O2 sat 100% on 2 L nasal cannula. Obtain ambulatory sats, plan to wean off of oxygen as tolerated. (2) Left bundle branch block Is this a current diagnosis for this admission?: Yes Plan: Chronic Echo results note limited study. Left ventricular systolic function normal with an LVEF of 50%. Patient states that she has been worked up for this by Dr. Pérez with a stress test 2 to 3 years ago which showed no evidence of occlusive disease. Patient to follow-up with Dr. Pérez outpatient. (3) Obstructive sleep apnea Is this a current diagnosis for this admission?: Yes Plan: Uses CPAP of 7 at home, has been using here without difficultly. (4) Suspected CHF (congestive heart failure) Is this a current diagnosis for this admission?: Yes Plan: Echo completed. Study was limited. Left ventricle grossly normal size. Left ventricular systolic function normal with an LVEF of 50%. CHF is less likely but given patient's left bundle branch block, will treat with IV Lasix, strict I's and O's, 1500 cc fluid restriction. (5) Suspected COVID-19 virus infection Is this a current diagnosis for this admission?: Yes Plan: She has fine dry sounding crackles in her lungs bilaterally and groundglass opacities on CT concerning for viral or atypical pneumonia. Has no leukocytosis or fevers. We will continue on dexamethasone and start on vitamin and zinc supplements. COVID-19 test is pending -if positive, will start on remdesivir Ceftriaxone and azithromycin Obtain sputum culture BC with no growth 24 hours. - Time Time Spent with patient: Less than 15 minutes Medications reviewed and adjusted accordingly: Yes Anticipated Discharge Disposition: Home, Self Care Anticipated Discharge Timeframe: within 48 hours
[2019-12-11 05:48] LABS: ABSOLUTE LYMPHOCYTES (AUTO) 2.7 10^3/uL (0.5-4.7); ABSOLUTE MONOCYTES (AUTO) 0.6 10^3/uL (0.1-1.4); BASOPHILS % (AUTO) 0.1 % (0-2); HEMATOCRIT 39.9 % (36.0-47.0); HEMOGLOBIN 13.7 g/dL (12.0-15.5); LYMPHOCYTES % (AUTO) 16.6 % (13-45); MEAN CORPUSCULAR HEMOGLOBIN 31.7 pg (27.0-33.4); MEAN CORPUSCULAR HGB CONC 34.3 g/dL (32.0-36.0); MEAN CORPUSCULAR VOLUME 93 fl (80-97); MONOCYTES % (AUTO) 3.8 % (3-13); PLATELET COUNT 411 10^3/uL (150-450); RED BLOOD COUNT 4.31 10^6/uL (3.72-5.28); RED CELL DISTRIBUTION WIDTH 13.5 % (11.5-14.0); SEGMENTED NEUTROPHILS % (AUTO) 79.5 % (42-78); TOTAL CELLS COUNTED % (AUTO) 100 %; WHITE BLOOD COUNT 16.3 10^3/uL (4.0-10.5)
[2019-12-11 06:10] LABS: ALKALINE PHOSPHATASE 65 U/L (38-126); ANION GAP 14 (5-19); ASPARTATE AMINO TRANSFERASE 21 U/L (14-36); BILIRUBIN,DIRECT 0.3 mg/dL (0.0-0.4); BILIRUBIN,TOTAL 0.6 mg/dL (0.2-1.3); BLOOD UREA NITROGEN 22 mg/dL (7-20); C-REACTIVE PROTEIN 6.6 mg/L (<10.0); CALCIUM 10.5 mg/dL (8.4-10.2); CARBON DIOXIDE 23 mmol/L (22-30); CHLORIDE 100 mmol/L (98-107); CREATINE KINASE 49 U/L (30-135); GLUCOSE 170 mg/dL (75-110)
[2019-12-11] MEDS: INSULIN LISPRO 100 UNIT/ML 3 ML VIAL SUBCUT SCH ×2 (08:45→11:57)
[2019-12-11] MEDS: ASCORBIC ACID 500 MG TABLET PO SCH (10:32)
[2019-12-11] MEDS: FUROSEMIDE INJ/PF 20 MG/2 ML SDV IV SCH (10:32)
[2019-12-11] MEDS: AZITHROMYCIN 250 MG TABLET PO SCH (10:32)
[2019-12-11] MEDS: CEFTRIAXONE 2 GM/D5W RTU 2 GM/50 ML RTUPB IV SCH (10:32)
[2019-12-11] MEDS: ZINC SULFATE 220 MG CAPSULE PO SCH (10:32)
[2019-12-11] MEDS: CHOLECALCIFEROL (D3) 1,000 UNIT (25 MCG) TABLET PO SCH (10:32)
[2019-12-11] MEDS: POTASSIUM CHLORIDE 10 MEQ TABLET.ER PO SCH (10:32)
[2019-12-11] MEDS: DEXAMETHASONE SOD PHOS INJ 10 MG/1 ML VIAL IV SCH (10:33)
[2019-12-11] MEDS: FLUTICASONE NASAL SPRAY 50 MCG/SPRY 120 SPRAY/16 GM NASL SCH (10:33)
[2019-12-11] MEDS: ENOXAPARIN SODIUM INJ 40 MG/0.4 ML DISP.SYRIN SUBCUT SCH (10:33)
[2019-12-11 12:53] VITALS: BP 120/75
--- NOTE | 2019-12-11 13:36 | PDOC DISCHARGE SUMMARY ---
<VIRAJ GIBSON - Last Filed: 12/11/19 14:28> Impression - Additional Information Referrals: [facility] [Provider Group] Prescriptions: Glimepiride [Amaryl] 2 mg PO DAILY #30 tablet Furosemide [Lasix 20 mg Tablet] 20 mg PO QAM #30 tablet Azithromycin [Zithromax 250 mg Tablet] 250 mg PO DAILY #2 tablet Home Medications: Azithromycin [Zithromax 250 mg Tablet] 250 mg PO DAILY #2 tablet 12/11/19 Furosemide [Lasix 20 mg Tablet] 20 mg PO QAM #30 tablet 12/11/19 Glimepiride [Amaryl] 2 mg PO DAILY #30 tablet 12/11/19 Hospital Course Hospital Course: Ms. Josi Valera is a 39-year-old female with history of GIUSEPPE on CPAP, irritable bowel syndrome, chronic left bundle branch block who presented to the hospital on 12/09/2019 for evaluation of acute onset shortness of breath specifically on exertion. Additionally she experienced a productive cough with a whitish frothy sputum, though she denied fever, chills, chest pain, or palpitations. On presentation patient was found to be in acute respiratory distress with hypoxia, requiring 2-3L supplemental O2 in order to maintain appropriate saturation. CTA of the chest without PE but did show groundglass opacities in her lungs, danika rning for pneumonia. She was placed on isolation precautions and tested for COVID-19, which was found negative. Antibiotic and steroidal therapy initiated. She received breathing treatments as needed. We were able to gradually wean her off supplemental oxygen, with resting O2 sats 100% on RA and ambulatory O2 sats 98% RA prior to discharge. She was provided rx for Azithromycin 250mg BID x2 days to complete antibiotic course. Of note pt had experienced mild decrease in exercise tolerance over the past week. Additionally reports history of chronic mild swelling in her bilateral lower extremities. She consistently denied orthopnea or PND. Given history of chronic LBBB at such a young age, heart failure work up and treatment was initiated. Echo was obtained, though study was noted to be limited, it did report left ventricular systolic function normal with LVEF of 50%. We will have her continue diuretic therapy in the outpatient setting with Lasix 20mg daily. Suspect acute on chronic diastolic heart failure. She is to follow up with Dr. Pérez and I recommend repeat Echo at that time. Over course of admission pt's blood sugar was found to be consistently elevated ranging from 150s-250s. Hemoglobin A1c 7.1. Pt tells me she was previously treated with a 5 month course of Metformin, but discontinued the medication as it was causing her to have insomnia. We have started her on Glimepiride 2mg once daily. Pt is to monitor her blood sugar before breakfast and dinner. Recommend keeping glucose log. She is understanding and agreeable to this means of treatment. She is stable for discharge and happy to go home. She is to follow up with PCP in 1 week following discharge. Plan Health Concerns: Suspected CHF/LBBB: Follow up with outpatient repeat Echo. Diabetes mellitus: Glucose control and monitoring. Plan of Treatment: Acute respiratory failure with hypoxia: Rx Azithromycin 250mg PO daily x2 days. Left bundle branch block/Suspected heart failure: Lasix 20mg daily. F/u with Dr. Pérez for repeat Echo. Obstructive sleep apnea: Continue CPAP Diabetes Mellitus: Glimepiride 2mg PO daily. <DAVE SINHA - Last Filed: 12/11/19 14:43> Impression - Admit/DC Date/PCP Admission Date/Primary Care Provider: 12/09/19 10:52 Discharge Date: 12/11/19 - Discharge Diagnosis (1) Acute respiratory failure with hypoxia Is this a current diagnosis for this admission?: Yes (2) Left bundle branch block Is this a current diagnosis for this admission?: Yes (3) Obstructive sleep apnea Is this a current diagnosis for this admission?: Yes (4) Diabetes mellitus type 2 in obese Is this a current diagnosis for this admission?: Yes (5) Suspected CHF (congestive heart failure) Is this a current diagnosis for this admission?: Yes (6) Atypical pneumonia Is this a current diagnosis for this admission?: Yes - Additional Information Resuscitation Status: Full Code Discharge Diet: Cardiac, Diabetic Discharge Activity: Activity As Tolerated History of Present Illiness History of Present Illness: As per admission HPI on 12/09/[address] Gibson "JOSI KATZ is a 39 year old female history of GIUSEPPE on CPAP, irritable bowel syndrome, chronic left bundle branch block, who presents to the hospital for evaluation of acute onset shortness of breath. Patient states episode began early this morning when she got out of bed and ambulated to the bathroom. She felt very dyspneic at the time. She was unable to recover and could not catch her breath at all and subsequently called the ambulance. She did not experience any chest pain at the time. She endorses having significant cough this morning and last night producing whitish frothy sputum. She denies any fever or chills. Denies notici ng any significant dyspnea prior to this but does admit to having mild decrease in exercise tolerance over the past week. She denies any orthopnea or PND. States she has chronic mild swelling in her legs from being on her foot all day at work. 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 She has a history of vaping but has stopped 4 months ago. She does work with a colleague who tested positive for COVID-19 but states that this person was on isolation at home and was cleared to return last Thursday at which point they have interacted. On arrival of ambulance, patient was noted to be hypoxic with pulse ox in the 70s. When in the ED she was noted to be in the 80s on room air. She was placed on nasal cannula and is now maintaining adequate pulse ox of about 2 to 3 L. CTA showed no PE but does show groundglass opacities in her lungs. Blood work is actually not significant. Flu test is negative." Physical Exam Vital Signs: Temp Pulse Resp BP Pulse Ox 98.0 F 93 20 128/77 H 98 12/11/19 08:51 12/11/19 08:36 12/11/19 03:32 12/11/19 08:36 12/11/19 10:23 Intake & Output 12/10/19 12/11/19 12/12/19 06:59 06:59 06:59 Intake Total 50 1530 Output Total 5400 Balance 50 -3870 Weight 103.3 kg 102.9 kg General appearance: PRESENT: no acute distress, obese Head exam: PRESENT: atraumatic, normocephalic Eye exam: PRESENT: EOMI, PERRLA. ABSENT: conjunctival injection Mouth exam: PRESENT: moist, tongue midline Neck exam: PRESENT: full ROM, JVD. ABSENT: tenderness Respiratory exam: PRESENT: crackles - bibasilar crackles., rales, symmetrical, unlabored. ABSENT: tachypnea, wheezes Cardiovascular exam: PRESENT: RRR, +S1, +S2. ABSENT: tachycardia Pulses: PRESENT: normal radial pulses, normal dorsalis pedis pul GI/Abdominal exam: PRESENT: normal bowel sounds, soft. ABSENT: tenderness Extremities exam: PRESENT: full ROM, +1 edema Musculoskeletal exam: PRESENT: ambulatory, full ROM. ABSENT: deformity, dislocation Neurological exam: PRESENT: alert, awake, oriented to person, oriented to place, oriented to time, oriented to situation, CN II-XII grossly intact. ABSENT: altered Psychiatric exam: PRESENT: appropriate affect, normal mood Skin exam: PRESENT: dry, intact, warm Results Laboratory Results: WBC 16.3 10^3/uL (4.0-10.5) H 12/11/19 04:55 RBC 4.31 10^6/uL (3.72-5.28) 12/11/19 04:55 Hgb 13.7 g/dL (12.0-15.5) 12/11/19 04:55 Hct 39.9 % (36.0-47.0) 12/11/19 04:55 MCV 93 fl (80-97) 12/11/19 04:55 MCH 31.7 pg (27.0-33.4) 12/11/19 04:55 MCHC 34.3 g/dL (32.0-36.0) 12/11/19 04:55 RDW 13.5 % (11.5-14.0) 12/11/19 04:55 Plt Count 411 10^3/uL (150-450) 12/11/19 04:55 Lymph % (Auto) 16.6 % (13-45) 12/11/19 04:55 [place] % (Auto) 3.8 % (3-13) 12/11/19 04:55 Eos % (Auto) 0.0 % (0-6) 12/11/19 04:55 Baso % (Auto) 0.1 % (0-2) 12/11/19 04:55 Absolute Neuts (auto) 13.0 10^3/uL (1.7-8.2) H 12/11/19 04:55 Absolute Lymphs (auto) 2.7 10^3/uL (0.5-4.7) 12/11/19 04:55 Absolute Monos (auto) 0.6 10^3/uL (0.1-1.4) 12/11/19 04:55 Absolute Eos (auto) 0.0 10^3/uL (0.0-0.6) 12/11/19 04:55 Absolute Basos (auto) 0.0 10^3/uL (0.0-0.2) 12/11/19 04:55 Seg Neutrophils % 79.5 % (42-78) H 12/11/19 04:55 PT 12.5 SEC (11.4-15.4) 12/09/19 03:04 INR 0.91 12/09/19 03:04 D-Dimer 0.43 ug/mL (0.00-0.50) 12/10/19 05:10 VBG pH 7.39 (7.30-7.42) 12/09/19 03:04 VBG pCO2 36.1 mmHg (35-63) 12/09/19 03:04 VBG HCO3 21.5 mmol/L (20-32) 12/09/19 03:04 VBG Base Excess -2.8 mmol/L 12/09/19 03:04 Sodium 137.1 mmol/L (137-145) 12/11/19 04:55 Potassium 5.0 mmol/L (3.6-5.0) 12/11/19 04:55 Chloride 100 mmol/L (98-107) 12/11/19 04:55 Carbon Dioxide 23 mmol/L (22-30) 12/11/19 04:55 Anion Gap 14 (5-19) 12/11/19 04:55 BUN 22 mg/dL (7-20) H 12/11/19 04:55 Creatinine 0.71 mg/dL (0.52-1.25) 12/11/19 04:55 Est GFR ( Amer) > 60 (>60) 12/11/19 04:55 Est GFR (MDRD) Non-Af > 60 (>60) 12/11/19 04:55 Glucose 170 mg/dL (75-110) H 12/11/19 04:55 POC Glucose 173 mg/dL (70-110) H 12/11/19 11:45 Hemoglobin A1c % 7.1 % (4.7-6.0) H 12/10/19 05:10 Lactic Acid 1.5 mmol/L (0.7-2.1) 12/09/19 09:54 Calcium 10.5 mg/dL (8.4-10.2) H 12/11/19 04:55 Magnesium 2.1 mg/dL (1.6-2.3) 12/10/19 05:10 Ferritin 27.40 ng/mL (6.2-137.0) 12/11/19 04:55 Total Bilirubin 0.6 mg/dL (0.2-1.3) 12/11/19 04:55 Direct Bilirubin 0.3 mg/dL (0.0-0.4) 12/11/19 04:55 Neonat Total Bilirubin Not Reportable 12/11/19 04:55 Neonat Direct Bilirubin Not Reportable 12/11/19 04:55 Neonat Indirect Bili Not Reportable 12/11/19 04:55 AST 21 U/L (14-36) 12/11/19 04:55 ALT 24 U/L (<35) 12/11/19 04:55 Alkaline Phosphatase 65 U/L (38-126) 12/11/19 04:55 Creatine Kinase 49 U/L (30-135) 12/11/19 04:55 Troponin I < 0.012 ng/mL 12/09/19 03:04 C-Reactive Protein 6.6 mg/L (<10.0) 12/11/19 04:55 NT-Pro-B Natriuret Pep 667 pg/mL (<125) H 12/09/19 03:04 Total Protein 8.0 g/dL (6.3-8.2) 12/11/19 04:55 Albumin 5.0 g/dL (3.5-5.0) 12/11/19 04:55 Urine Color STRAW 12/09/19 04:30 Urine Appearance CLEAR 12/09/19 04:30 Urine pH 6.0 (5.0-9.0) 12/09/19 04:30 Ur Specific [place] 1.012 12/09/19 04:30 Urine Protein 100 mg/dL (NEGATIVE) H 12/09/19 04:30 Urine Glucose (UA) 50 mg/dL (NEGATIVE) H 12/09/19 04:30 Urine Ketones TRACE mg/dL (NEGATIVE) H 12/09/19 04:30 Urine Blood NEGATIVE (NEGATIVE) 12/09/19 04:30 Urine Nitrite NEGATIVE (NEGATIVE) 12/09/19 04:30 Urine Bilirubin NEGATIVE (NEGATIVE) 12/09/19 04:30 Urine Urobilinogen NEGATIVE mg/dL (<2.0) 12/09/19 04:30 Ur Leukocyte Esterase NEGATIVE (NEGATIVE) 12/09/19 04:30 Urine WBC (Auto) 3 /HPF 12/09/19 04:30 Urine RBC (Auto) 2 /HPF 12/09/19 04:30 Urine Bacteria (Auto) TRACE /HPF 12/09/19 04:30 Squamous Epi Cells Auto 2 /HPF 12/09/19 04:30 Urine Mucus (Auto) RARE /LPF 12/09/19 04:30 Urine Ascorbic Acid NEGATIVE (NEGATIVE) 12/09/19 04:30 COVID-19 Source See comment 12/09/19 05:08 COVID-19 (RJ) Not Detected (Not Detect) 12/09/19 05:08 Influenza A (Rapid) NEGATIVE (NEGATIVE) 12/09/19 04:30 Influenza B (Rapid) NEGATIVE (NEGATIVE) 12/09/19 04:30 Blood Type A POSITIVE 12/10/19 05:10 Antibody Screen NEGATIVE 12/10/19 05:10 12/09/19 12/09/19 03:04 03:04 Troponin I < 0.012 NT-Pro-B Natriuret Pep 667 H EKG Comments: 12/09/2019: Sinus tachycardia with LBBB. Impressions: Chest X-Ray 12/09/19 03:05 IMPRESSION: No acute cardiopulmonary abnormality. copyright 2011 [employer]- All Rights Reserved Chest/Abdomen CTA 12/09/19 05:36 IMPRESSION: 1. Bilateral lower lung groundglass opacities with some areas of mild crazy paving. While this could be related to edema somewhat favor an atypical infectious etiology. Imaging features can be seen with viral pneumonia, though are nonspecific and can occur with a variety of infectious and noninfectious processes. [PneInd] Reference: https://pubs.rsna.org/doi/full/10.1148/ryct.7326914933 2. No evidence of pulmonary embolus. 3. Fatty infiltration of the liver. Plan Time Spent: Greater than 30 Minutes Stroke Is this a Stroke Patient?: No Acute Heart Failure Is this a Heart Failure Patient?: No
== END 2019-12-11 13:32 | disposition home or self-care (01) | DRG 291 ==
LOC: ER 02:35 → EH 10:52 → 3N 12:03
PROVIDERS: ADMIT Internal Medicine; ATTEND Physician Assistant
PROC: 5A09457 Assistance with Respiratory Ventilation, 24-96 Consecutive Hours, Continuous Positive Airway Pressure (ICD-10-PCS; principal; 2019-12-09)
DX: I50.31 Acute diastolic (congestive) heart failure (principal); J18.9 Pneumonia, unspecified organism; J96.01 Acute respiratory failure with hypoxia; G47.33 Obstructive sleep apnea (adult) (pediatric); K58.9 Irritable bowel syndrome, unspecified; I44.7 Left bundle-branch block, unspecified; Z20.828 Contact with and (suspected) exposure to other viral communicable diseases; Z87.891 Personal history of nicotine dependence; Z90.49 Acquired absence of other specified parts of digestive tract; Z82.61 Family history of arthritis; Z83.3 Family history of diabetes mellitus; Z80.9 Family history of malignant neoplasm, unspecified; Z83.438 Family history of other disorder of lipoprotein metabolism and other lipidemia; Z88.8 Allergy status to other drugs, medicaments and biological substances
CPT/HCPCS: 36415; 71045; 71275; 80053; 81001; 82550; 82728; 82803; 82962; 83036; 83519; 83605; 83735; 83880; 84484; 85025; 85379; 85610; 86140; 86850; 86900; 86901; 87040; 87635; 87804; 93005; 93010; 93306; 94660; 96365; 96368; 96375; 99285; C9803; J0456; J0696; J1100; J1650; J1815; J1940; J3490